=== PATIENT | male | born 1965 | race Caucasian/White ===

== ENCOUNTER 2016-10-11 20:03 | Emergency (ER) | payer SELFPAY ==
[~2016-10-11] VITALS: Ht 170.2 cm; Wt 98.0 kg
[~2016-10-11 20:03] MED LIST: ALBU0.086 INH; ASPI81TA82 PO; ATOR40TA49 PO; IMDU30TA PO; LISI-360 PO
[2016-10-11 20:05] VITALS: BP 135/94; PULSE 72; RESP 17; TEMP 97.8; O2SAT 96
[2016-10-11] MEDS: RESP: ALBUTEROL 2.5 MG/IPRATROPIUM 0.5 MG NEB (SCH) INH (20:43)
[2016-10-11] MEDS ORDERED: SODIUM CHLORIDE 0.9% FLUSH 5 ML FLUSH IVF PRN (20:45)
[2016-10-11 20:52] LABS: AUTOMATED NEUTROPHIL # 4.7 TH/MM3 (1.8-7.7); BASOPHIL # 0.3 TH/MM3 (0-0.2); BASOPHIL % 3.1 % (0.0-2.0); EOSINOPHIL # 0.3 TH/MM3 (0-0.4); EOSINOPHIL % 3.9 % (0.0-4.0); HEMATOCRIT 46.7 % (39.0-51.0); HEMO FLAGS DIFF FINAL; LYMPH % 29.9 % (9.0-44.0); LYMPHOCYTE # 2.5 TH/MM3 (1.0-4.8); MEAN CELL VOLUME 86.1 FL (80.0-100.0); MEAN CORPUSCULAR HEMOGLOBIN 28.4 PG (27.0-34.0); MONO % 6.5 % (0.0-8.0); NEUT % 56.6 % (16.0-70.0); PLATELET COUNT 226 TH/MM3 (150-450); RED BLOOD COUNT 5.43 MIL/MM3 (4.50-5.90); RED CELL DISTRIBUTION WIDTH 12.9 % (11.6-17.2); WHITE BLOOD COUNT 8.3 TH/MM3 (4.0-11.0)
--- NOTE | 2016-10-11 20:52 | PD ---
HPI Chief Complaint: Respiratory Symptoms Time Seen by Provider: 20:33 Travel History International Travel<30 days: No Contact w/Intl Traveler<30days: No Traveled to known affect area: No History of Present Illness HPI The patient is a 51-year-old male that complains of cough, chest congestion and chest tightness for 2 weeks. He does have a history of coronary artery disease and has had a myocardial infarction the past. He states this feeling of chest tightness is not the same as when he had heart problems. He has never smoked. He denies any fever. He denies any wheezing and his cough is occasionally productive of yellow sputum. He has not used his nebulizer machine at home because he states he has not had any wheezing. PFSH Past Medical History Arthritis: No Asthma: Yes Autoimmune Disease: No Blood Disorders: No Anxiety: Yes Depression: Yes Heart Rhythm Problems: No Cancer: No Cardiac Catheterization: Yes (X 2 "BLOCKED ARTERY IN HEART") Cardiovascular Problems: Yes High Cholesterol: Yes Chemotherapy: No Chest Pain: Yes Congestive Heart Failure: No COPD: No Cerebrovascular Accident: No Coronary Artery Disease: Yes Diabetes: No Diminished Hearing: No Endocrine: No Gastrointestinal Disorders: Yes (FATTY LIVER) GERD: No Glaucoma: No Genitourinary: No Headaches: Yes Hepatitis: No Hiatal Hernia: No Hypertension: Yes Immune Disorder: No Kidney Stones: No Medical other: Yes (PARKINSONS) Musculoskeletal: Yes (RIGHT ELBOW REPAIR SURGERIES X7 S/P SENIOR CARE) Neurologic: Yes Parkinson's Disease: Yes Psychiatric: Yes (PTSD) Reproductive: No Respiratory: Yes Migraines: No Myocardial Infarction: No Pneumonia: Yes Radiation Therapy: No Renal Failure: No Seizures: No Sickle Cell Disease: No Sleep Apnea: No Thyroid Disease: No Ulcer: Yes (GASTRIC) Past Surgical History Abdominal Surgery: Yes (UMBILICAL HERNIA REPAIR) AICD: No Appendectomy: No Arteriovenous Shunt: No Cardiac Surgery: No Cholecystectomy: Yes Coronary Artery Bypass Graft: No Ear Surgery: No Endocrine Surgery: No Eye Surgery: Yes (left eye metal removed) Genitourinary Surgery: No Gynecologic Surgery: No Insulin Pump: No Neurologic Surgery: Yes (DOUBLE FUSION OF L4-5-S1 AUG 2007) Oral Surgery: No Pacemaker: No Thoracic Surgery: No Other Surgery: Yes (BILATERAL CARPEL TUNNEL 09/2012;MASS TAKEN OUT OF RIGHT ELBOW) Family History Family Myocardial Infarction: Yes Family Hypercholesterolemia: Yes Social History Alcohol Use: No Tobacco Use: No Substance Use: No (PAST HISTORY, CLEAN SINCE 2010) Allergies-Medications (Allergen,Severity, Reaction): Coded Allergies: Sulfa (Verified Allergy, Severe, SWEKLLING AND ITCHING, 10/11/16) Reported Meds & Prescriptions Reported Meds & Active Scripts Active Reported Ventolin Hfa 18 GM Inh (Albuterol Sulfate) 90 Mcg/Act Aer 2 Puff INH Q4-6H PRN Simvastatin 20 Mg Tab 20 Mg PO DAILY Norvasc (Amlodipine Besylate) 10 Mg Tab 10 Mg PO DAILY Aspirin 81 Mg Tabdr 81 Mg PO DAILY Review of Systems Except as stated in HPI: all other systems reviewed are Neg Physical Exam Narrative GENERAL: The patient is alert, oriented 3 in slight respiratory distress. His vital signs are normal but the oximetry is 96%. SKIN: Warm and dry. HEAD: Atraumatic. Normocephalic. EYES: Pupils equal and round. No scleral icterus. No injection or drainage. ENT: No nasal bleeding or discharge. Mucous membranes pink and moist. NECK: Trachea midline. No JVD. CARDIOVASCULAR: Regular rate and rhythm. No murmur appreciated. RESPIRATORY: No accessory muscle use. Clear to auscultation. Breath sounds equal bilaterally but are diminished bilaterally. GASTROINTESTINAL: Abdomen soft, non-tender, nondistended. Hepatic and splenic margins not palpable. MUSCULOSKELETAL: No obvious deformities. No clubbing. No cyanosis. No edema. NEUROLOGICAL: Awake and alert. No obvious cranial nerve deficits. Motor grossly within normal limits. Normal speech. PSYCHIATRIC: Appropriate mood and affect; insight and judgment normal. Data Data Last Documented VS Vital Signs Date Time Temp Pulse Resp B/P Pulse Ox O2 Delivery O2 Flow Rate FiO2 10/11/16 23:15 Room Air 2 10/11/16 23:15 77 17 129/72 97 10/11/16 20:05 97.8 Orders Electrocardiogram (10/11/16 20:33) Ckmb (Isoenzyme) Profile (10/11/16 20:33) Complete Blood Count With Diff (10/11/16 20:33) Comprehensive Metabolic Panel (10/11/16 20:33) Magnesium (Mg) (10/11/16 20:33) Troponin I (10/11/16 20:33) Ecg Monitoring (10/11/16 20:33) Iv Access Insert/Monitor (10/11/16 20:33) Oximetry (10/11/16 20:33) Oxygen Administration (10/11/16 20:33) Sodium Chloride 0.9% Flush (Ns Flush) (10/11/16 20:45) Chest, Pa & Lat (10/11/16 20:33) Influenzae A/B Antigen (10/11/16 20:33) Albuterol-Ipratropium Neb (Duoneb Neb) (10/11/16 20:45) CKMB (10/11/16 20:45) CKMB% (10/11/16 20:45) B-Type Natriuretic Peptide (10/11/16 22:07) Arterial Blood Gas (Abg) (10/11/16 22:07) Ct Pulmonary Angiogram (10/11/16 22:07) Iohexol 350 Inj (Omnipaque 350 Inj) (10/11/16 23:06) Labs Laboratory Tests Test 10/11/16 10/11/16 20:45 22:15 White Blood Count 8.3 TH/MM3 Red Blood Count 5.43 MIL/MM3 Hemoglobin 15.4 GM/DL Hematocrit 46.7 % Mean Corpuscular Volume 86.1 FL Mean Corpuscular Hemoglobin 28.4 PG Mean Corpuscular Hemoglobin 33.0 % Concent Red Cell Distribution Width 12.9 % Platelet Count 226 TH/MM3 Mean Platelet Volume 8.7 FL Neutrophils (%) (Auto) 56.6 % Lymphocytes (%) (Auto) 29.9 % Monocytes (%) (Auto) 6.5 % Eosinophils (%) (Auto) 3.9 % Basophils (%) (Auto) 3.1 % Neutrophils # (Auto) 4.7 TH/MM3 Lymphocytes # (Auto) 2.5 TH/MM3 Monocytes # (Auto) 0.5 TH/MM3 Eosinophils # (Auto) 0.3 TH/MM3 Basophils # (Auto) 0.3 TH/MM3 CBC Comment DIFF FINAL Differential Comment Sodium Level 144 MEQ/L Potassium Level 3.9 MEQ/L Chloride Level 108 MEQ/L Carbon Dioxide Level 27.0 MEQ/L Anion Gap 9 MEQ/L Blood Urea Nitrogen 15 MG/DL Creatinine 1.60 MG/DL Estimat Glomerular Filtration 45 ML/MIN Rate Random Glucose 105 MG/DL Calcium Level 8.9 MG/DL Magnesium Level 2.2 MG/DL Total Bilirubin 0.2 MG/DL Aspartate Amino Transf 54 U/L (AST/SGOT) Alanine Aminotransferase 48 U/L (ALT/SGPT) Alkaline Phosphatase 81 U/L Total Creatine Kinase 952 U/L Creatine Kinase MB 3.9 NG/ML Creatine Kinase MB % 0.4 % Troponin I LESS THAN 0.02 NG/ML B-Type Natriuretic Peptide 23 PG/ML Total Protein 7.2 GM/DL Albumin 3.7 GM/DL Blood Gas Puncture Site RT RADIAL Blood Gas Patient Temperature 98.6 Blood Gas HCO3 23 mmol/L Blood Gas Base Excess -0.5 mmol/L Blood Gas Oxygen Saturation 95 % Arterial Blood pH 7.44 Arterial Blood Partial 35 mmHG Pressure CO2 Arterial Blood Partial 81 mmHG Pressure O2 Arterial Blood Oxygen Content 19.9 Vol % Arterial Blood 1.4 % Carboxyhemoglobin Arterial Blood Methemoglobin 1.0 % Blood Gas Hemoglobin 14.9 G/DL Blood Gas Inspired Oxygen 21 % MDM Medical Decision Making Medical Screen Exam Complete: Yes Emergency Medical Condition: Yes Medical Record Reviewed: Yes Interpretation(s) The EKG is normal with a normal sinus rhythm rate of 71. The cardiac enzymes are normal. The complete metabolic profile shows a creatinine 1.6 and GFR 45 with GOT of 54 but is otherwise unremarkable. The CBC is normal. The influenza A/B antigen is negative for flu a and flu B antigen. The chest x-ray shows no acute disease. The patient's oximetry is now 94% on room air. The BNP is normal and the CT pulmonary angiogram shows no acute change and no pulmonary embolus. Differential Diagnosis Pneumonia, bronchitis, congestive heart failure, COPD with acute exacerbation, pulmonary embolus, viral syndrome Narrative Course The patient likely has a bronchitis. He will be given Zithromax 500 mg for 5 days. He is told that this is viral that the antibiotics will not have an effect. Diagnosis Primary Impression: Bronchitis Additional Instructions: The antibiotic is taken one tablet daily for 5 days. It stays in your system and works for about 2 weeks. Follow-up next week with your primary care physician. Med/Other Pt SpecificInfo: Prescription(s) given Scripts Azithromycin (Zithromax)500 Mg [id number] Mg PO DAILY 5 Days Ref 0 Prov:David Hogue MD 10/11/16 Disposition: 01 DISCHARGE HOME Condition: Stable David Hogue MD Oct 11, 2016 20:52
[2016-10-11] MEDS ORDERED: VENTAER INH (20:55)
[2016-10-11] MEDS ORDERED: AMLO10 PO (20:55)
[2016-10-11] MEDS ORDERED: ASPI1TAB69 PO (20:55)
[2016-10-11] MEDS ORDERED: SIMV20TA PO (20:55)
[2016-10-11 21:10] LABS: CHLORIDE 108 MEQ/L (98-107); POTASSIUM 3.9 MEQ/L (3.5-5.1); SODIUM (NA) 144 MEQ/L (136-145)
[2016-10-11 21:14] LABS: ANION GAP 9 MEQ/L (5-15); BLOOD UREA NITROGEN 15 MG/DL (7-18); MAGNESIUM 2.2 MG/DL (1.5-2.5)
[2016-10-11 21:17] LABS: ALT (GPT) 48 U/L (12-78); AST (GOT) 54 U/L (15-37); GLOMERULAR FILTRATION RATE 45 ML/MIN (>89)
[2016-10-11 21:18] LABS: TOTAL BILIRUBIN ADULT 0.2 MG/DL (0.2-1.0)
[2016-10-11 21:20] VITALS: BP 148/92; PULSE 81; RESP 20; O2SAT 98
[2016-10-11 21:20] LABS: ALKALINE PHOSPHATASE 81 U/L (45-117); CREATINE KINASE 952 U/L (39-308)
[2016-10-11 21:32] LABS: CKMB 3.9 NG/ML (0.5-3.6)
--- NOTE | 2016-10-11 21:49 | RADHPO ---
EXAM DATE/TIME: 10/11/2016 21:40 [facility] COMPARISON: No previous studies available for comparison. INDICATIONS : Congestion, cough MEDICAL HISTORY : None. SURGICAL HISTORY : None. ENCOUNTER: Initial ACUITY: 2 days PAIN SCORE: 3/10 LOCATION: Bilateral chest FINDINGS: PA and lateral views of the chest demonstrate the lungs to be symmetrically aerated without evidence of mass, infiltrate or effusion. The cardiomediastinal contours are unremarkable. Osseous structure s are intact. CONCLUSION: No acute disease. Raheem Hodge MD on October 11, 2016 at 21:48 Board Certified Radiologist. This report was verified electronically.
[2016-10-11 22:22] VITALS: O2SAT 95
[2016-10-11 22:25] VITALS: BP 133/70; PULSE 79; RESP 18; O2SAT 96
[2016-10-11 22:26] LABS: BLOOD GAS BASE EXCESS -0.5 mmol/L (-2-2); BLOOD GAS CARBOXYHEMOGLOBIN 1.4 % (0-4); BLOOD GAS HCO3 23 mmol/L (22-26); BLOOD GAS O2 HGB SATURATION 95 % (90-100); BLOOD GAS OXYGEN CONTENT 19.9 Vol % (12.0-20.0); BLOOD GAS PCO2 35 mmHG (38-42); BLOOD GAS PO2 81 mmHG (61-120); BLOOD GAS TOTAL HGB 14.9 G/DL (12.0-16.0); TEMP CORR TO 98.6
[2016-10-11 22:27] LABS: CRITICAL VALUE NO; DRAW SITE RT RADIAL; FIO2 21 %; NUMBER OF ARTERIAL PUNCTURES 1; STAT YES; ULNAR PULSE Y
--- NOTE | 2016-10-11 23:05 | RADHPO ---
EXAM DATE/TIME: 10/11/2016 22:38 [facility] COMPARISON: No previous studies available for comparison. INDICATIONS : Chest tightness and cough for two weeks. IV CONTRAST: 74 cc Omnipaque 350 (iohexol) IV RADIATION DOSE: 19.32 CTDIvol (mGy) MEDICAL HISTORY : Hypertension. Parkinsons. Myocardial infarction.Coronary artery disease. SURGICAL HISTORY : Cholecystectomy. ENCOUNTER: Initial ACUITY: 2 weeks PAIN SCALE: 5/10 LOCATION: chest TECHNIQUE: Volumetric scanning of the chest was performed using a pulmonary embolism protocol MIP images were re constructed. Using automated exposure control and adjustment of the mA and/or kV according to patien t size, radiation dose was kept as low as reasonably achievable to obtain optimal diagnostic quality images. FINDINGS: PULMONARY ARTERIES: No filling defects are seen in the pulmonary arteries through the segmental level. LUNGS: There is no consolidation or pneumothorax . No concerning pulmonary nodule is visualized. PLEURAE: There is no pleural thickening or pleural effusion. MEDIASTINUM: There is good visualization of the great vessels of the middle mediastinum. No evidence of mediastin al or hilar adenopathy/mass. MUSCULOSKELETAL: Within normal limits for patient age. MISCELLANEOUS: The visualized upper abdominal organs demonstrate no acute abnormality. CONCLUSION: 1. No evidence of pulmonary embolism. 2. No acute intrathoracic disease. Conor Palomares MD on October 11, 2016 at 23:02 Board Certified Radiologist. This report was verified electronically.
[2016-10-11] MEDS ORDERED: IOHEXOL 350 MG/ML 10 ML VIAL (for RAD DIAG) IV ONE (23:06)
[2016-10-11 23:15] VITALS: BP 129/72; PULSE 77; RESP 17; O2SAT 97
[2016-10-11] MEDS ORDERED: ZITH500T PO (23:25)
[2016-10-11] MEDS ORDERED: AZITHROMYCIN 250 MG TAB PO ONE (23:30)
[2016-10-11 23:41] VITALS: BP 123/61
--- NOTE | 2016-10-12 17:02 | EKG ---
Date Performed: 10/11/2016 Time Performed: 20:17:58 PTAGE: 51 years EKG: Sinus rhythm . Compared to prior tracing no significant change Normal ECG PREVIOUS TRACING : 12/26/2013 17.41 DOCTOR: Alessandra Mullen Interpretating Date/Time 10/12/2016 17:00:04
== END 2016-10-11 23:51 | disposition home or self-care (01) ==
LOC: PHED 20:03
DX: J40 Bronchitis, not specified as acute or chronic (principal); R07.89 Other chest pain; I25.10 Atherosclerotic heart disease of native coronary artery without angina pectoris; I10 Essential (primary) hypertension; I25.2 Old myocardial infarction; E78.00 Pure hypercholesterolemia, unspecified; Z87.09 Personal history of other diseases of the respiratory system; Z86.59 Personal history of other mental and behavioral disorders; Z87.19 Personal history of other diseases of the digestive system; Z86.69 Personal history of other diseases of the nervous system and sense organs; Z87.01 Personal history of pneumonia (recurrent)
CPT/HCPCS: 36600; 71020; 71275; 80053; 82550; 82552; 82805; 83735; 83880; 84484; 85025; 87804; 93005; 94640; 94664; 99284; Q9967

== ENCOUNTER 2017-02-04 19:41 | Observation (INO) | payer MEDICARE ==
[~2017-02-04] VITALS: Ht 170.2 cm; Wt 110.0 kg
[~2017-02-04 19:41] MED LIST changes: -ALBU0.086 INH; +AMLO10 PO; +ASPI1TAB69 PO; -ASPI81TA82 PO; -ATOR40TA49 PO; -IMDU30TA PO; -LISI-360 PO; +SIMV20TA PO; +VENTAER INH; +ZITH500T PO
[2017-02-04 19:46] VITALS: BP 162/96; PULSE 75; RESP 16; TEMP 98.6; O2SAT 99
--- NOTE | 2017-02-04 21:18 | RADRPT ---
EXAM DATE/TIME: 02/04/2017 21:16 [facility] COMPARISON: CHEST SINGLE AP, December 26, 2013, 19:44. INDICATIONS : Chest pain. MEDICAL HISTORY : Cardiac blockages, asthma. SURGICAL HISTORY : Cardiac caths. ENCOUNTER: Initial ACUITY: 2 days PAIN SCORE: 7/10 LOCATION: middle chest. FINDINGS: A single view of the chest demonstrates the lungs to be symmetrically aerated without evidence of mas s, infiltrate or effusion. The cardiomediastinal contours are unremarkable. Osseous structures are intact. CONCLUSION: No acute disease. Barron Manning MD FACR on February 04, 2017 at 21:16 Board Certified Radiologist. This report was verified electronically.
[2017-02-04 21:19] LABS: AUTOMATED NEUTROPHIL # 3.9 TH/MM3 (1.8-7.7); BASOPHIL # 0.1 TH/MM3 (0-0.2); BASOPHIL % 1.1 % (0.0-2.0); EOSINOPHIL # 0.2 TH/MM3 (0-0.4); EOSINOPHIL % 2.2 % (0.0-4.0); HEMATOCRIT 47.5 % (39.0-51.0); HEMO FLAGS DIFF FINAL; LYMPH % 32.7 % (9.0-44.0); LYMPHOCYTE # 2.3 TH/MM3 (1.0-4.8); MEAN CELL VOLUME 84.1 FL (80.0-100.0); MEAN CORPUSCULAR HEMOGLOBIN 29.3 PG (27.0-34.0); MEAN CORPUSCULAR HGB CONC 34.8 % (32.0-36.0); MONO % 9.1 % (0.0-8.0); NEUT % 54.9 % (16.0-70.0); PLATELET COUNT 209 TH/MM3 (150-450); RED BLOOD COUNT 5.65 MIL/MM3 (4.50-5.90); RED CELL DISTRIBUTION WIDTH 13.6 % (11.6-17.2); WHITE BLOOD COUNT 7.1 TH/MM3 (4.0-11.0)
[2017-02-04 21:26] LABS: APTT (PATIENT) 26.1 SEC (24.3-30.1)
[2017-02-04 21:36] LABS: ANION GAP 9 MEQ/L (5-15); BICARBONATE 27.8 MEQ/L (21.0-32.0); BLOOD UREA NITROGEN 16 MG/DL (7-18); CHLORIDE 103 MEQ/L (98-107); GLOMERULAR FILTRATION RATE 48 ML/MIN (>89); POTASSIUM 3.7 MEQ/L (3.5-5.1); SODIUM (NA) 140 MEQ/L (136-145)
[2017-02-04 21:44] LABS: CREATINE KINASE 223 U/L (39-308)
[2017-02-05] MEDS ORDERED: ASPIRIN 81 MG CHEW TAB CHEW ONE (00:15)
--- NOTE | 2017-02-05 00:17 | PD ---
HPI Chief Complaint: Chest Pain Time Seen by Provider: 00:00 Travel History International Travel<30 days: No Contact w/Intl Traveler<30days: No Traveled to known affect area: No History of Present Illness HPI Patient 51-year-old male with a history of PA presents emergency Department with chest pain and tightness radiating to his left arm as well as some shortness of breath with minimal exertion for the past 4 days. Patient is followed by the [facility] heart group. He states last stress test was 4 years ago. He states he has known blockages multiple arteries to 75% which did not require intervention. States she's not had a catheter since before his last stress test 4 years ago. Endorses a history of high blood pressure and high cholesterol. States he also has a history of gastroparesis and reflux. He denies any nausea or vomiting currently. Denies any fever or cough. States currently is discomfort is only mild and feels like a tightness. PFSH Past Medical History Hx Anticoagulant Therapy: Yes (asprin) Arthritis: No Asthma: Yes Autoimmune Disease: No Blood Disorders: No Anxiety: Yes Depression: Yes Heart Rhythm Problems: No Cancer: No Cardiac Catheterization: Yes (X 2 "BLOCKED ARTERY IN HEART") Cardiovascular Problems: Yes (mi, htn) High Cholesterol: Yes Chemotherapy: No Chest Pain: Yes Congestive Heart Failure: No COPD: No Cerebrovascular Accident: No Coronary Artery Disease: Yes Diabetes: No Diminished Hearing: No Endocrine: No Gastrointestinal Disorders: Yes (FATTY LIVER) GERD: No Glaucoma: No Genitourinary: No Headaches: Yes Hepatitis: No Hiatal Hernia: No Hypertension: Yes Immune Disorder: No Kidney Stones: No Musculoskeletal: Yes (RIGHT ELBOW REPAIR SURGERIES X7 S/P CARE HOME) Neurologic: Yes Parkinson's Disease: Yes Psychiatric: Yes (PTSD) Reproductive: No Respiratory: Yes (asthma) Migraines: No Myocardial Infarction: No Pneumonia: Yes Radiation Therapy: No Renal Failure: No Seizures: No Sickle Cell Disease: No Sleep Apnea: No Thyroid Disease: No Ulcer: Yes (GASTRIC) Past Surgical History Abdominal Surgery: Yes (UMBILICAL HERNIA REPAIR) AICD: No Appendectomy: No Arteriovenous Shunt: No Cardiac Surgery: No Cholecystectomy: Yes Coronary Artery Bypass Graft: No Ear Surgery: No Endocrine Surgery: No Eye Surgery: Yes (left eye metal removed) Genitourinary Surgery: No Gynecologic Surgery: No Insulin Pump: No Neurologic Surgery: Yes (DOUBLE FUSION OF L4-5-S1 AUG 2007) Oral Surgery: No Pacemaker: No Thoracic Surgery: No Other Surgery: Yes (BILATERAL CARPEL TUNNEL 09/2012;MASS TAKEN OUT OF RIGHT ELBOW) Family History Family Hypercholesterolemia: Yes Social History Alcohol Use: No Tobacco Use: No Substance Use: No (PAST HISTORY, CLEAN SINCE 2010) Allergies-Medications (Allergen,Severity, Reaction): Coded Allergies: Sulfa (Verified Allergy, Severe, SWEKLLING AND ITCHING, 10/11/16) Reported Meds & Prescriptions Reported Meds & Active Scripts Active Zithromax (Azithromycin) 500 Mg Tab 500 Mg PO DAILY 5 Days Reported Ventolin Hfa 18 GM Inh (Albuterol Sulfate) 90 Mcg/Act Aer 2 Puff INH Q4-6H PRN Simvastatin 20 Mg Tab 20 Mg PO DAILY Norvasc (Amlodipine Besylate) 10 Mg Tab 10 Mg PO DAILY Aspirin 81 Mg Tabdr 81 Mg PO DAILY Review of Systems Except as stated in HPI: all other systems reviewed are Neg Physical Exam Narrative GENERAL: Well-developed well-nourished no apparent distress SKIN: Focused skin assessment warm/dry. HEAD: Atraumatic. Normocephalic. EYES: Pupils equal and round. No scleral icterus. No injection or drainage. ENT: No nasal bleeding or discharge. Mucous membranes pink and moist. NECK: Trachea midline. No JVD. CARDIOVASCULAR: Regular rate and rhythm. No murmur appreciated. 2+ bilateral equal pulses in all 4 extremities. RESPIRATORY: No accessory muscle use. Clear to auscultation. Breath sounds equal bilaterally. GASTROINTESTINAL: Abdomen soft, non-tender, nondistended. Hepatic and splenic margins not palpable. MUSCULOSKELETAL: No obvious deformities. No clubbing. No cyanosis. No edema. NEUROLOGICAL: Awake and alert. No obvious cranial nerve deficits. Motor grossly within normal limits. Normal speech. PSYCHIATRIC: Appropriate mood and affect; insight and judgment normal. Data Data Last Documented VS Vital Signs Date Time Temp Pulse Resp B/P Pulse Ox O2 Delivery O2 Flow Rate FiO2 02/04/17 19:46 98.6 75 16 162/96 99 Room Air Orders Electrocardiogram (02/04/17 ) Complete Blood Count With Diff (02/04/17 20:35) Basic Metabolic Panel (Bmp) (02/04/17 20:35) Ckmb (Isoenzyme) Profile (02/04/17 20:35) Troponin I (02/04/17 20:35) Chest, Single Ap (02/04/17 20:35) Act Partial Throm Time (Ptt) (02/04/17 20:35) Act Partial Throm Time (Ptt) (02/04/17 21:26) CKMB (02/04/17 20:52) CKMB% (02/04/17 20:52) Aspirin Chew (Aspirin Chew) (02/05/17 00:15) Nitroglycerin 2% Oint (Nitroglycerin 2% (02/05/17 00:30) Nitroglycerin Sl (Nitrostat Sl) (02/05/17 00:30) Activity Bed Rest With Brp (02/05/17 00:24) Vital Signs (Adult) Q4H (02/05/17 00:24) Cardiac Rhythm .As Directed (02/05/17 00:24) Notify Dr: Other .PRN (02/05/17 00:24) Notify DrJose Parameters (02/05/17 00:24) Resp Oxygen Nasal Cannula (02/05/17 ) Ckmb (Isoenzyme) Profile (02/05/17 00:24) Ckmb (Isoenzyme) Profile (02/05/17 03:24) Troponin I (02/05/17 00:24) Troponin I (02/05/17 03:24) Electrocardiogram (02/05/17 00:24) Electrocardiogram (02/05/17 03:24) ^ Obtain (02/05/17 00:24) Sodium Chloride 0.9% Flush (Ns Flush) (02/05/17 00:30) Sodium Chloride 0.9% Flush (Ns Flush) (02/05/17 09:00) Archivist / Telemetry [id number] (02/05/17 00:24) Admit Order (Ed Use Only) (02/05/17 ) Labs Laboratory Tests Test 02/04/17 20:52 White Blood Count 7.1 TH/MM3 Red Blood Count 5.65 MIL/MM3 Hemoglobin 16.6 GM/DL Hematocrit 47.5 % Mean Corpuscular Volume 84.1 FL Mean Corpuscular Hemoglobin 29.3 PG Mean Corpuscular Hemoglobin 34.8 % Concent Red Cell Distribution Width 13.6 % Platelet Count 209 TH/MM3 Mean Platelet Volume 9.0 FL Neutrophils (%) (Auto) 54.9 % Lymphocytes (%) (Auto) 32.7 % Monocytes (%) (Auto) 9.1 % Eosinophils (%) (Auto) 2.2 % Basophils (%) (Auto) 1.1 % Neutrophils # (Auto) 3.9 TH/MM3 Lymphocytes # (Auto) 2.3 TH/MM3 Monocytes # (Auto) 0.6 TH/MM3 Eosinophils # (Auto) 0.2 TH/MM3 Basophils # (Auto) 0.1 TH/MM3 CBC Comment DIFF FINAL Differential Comment Activated Partial 26.1 SEC Thromboplast Time Sodium Level 140 MEQ/L Potassium Level 3.7 MEQ/L Chloride Level 103 MEQ/L Carbon Dioxide Level 27.8 MEQ/L Anion Gap 9 MEQ/L Blood Urea Nitrogen 16 MG/DL Creatinine 1.52 MG/DL Estimat Glomerular Filtration 48 ML/MIN Rate Random Glucose 91 MG/DL Calcium Level 9.2 MG/DL Total Creatine Kinase 223 U/L Creatine Kinase MB 2.0 NG/ML Troponin I LESS THAN 0.02 NG/ML MDM Medical Decision Making Medical Screen Exam Complete: Yes Emergency Medical Condition: Yes Interpretation(s) EKG shows normal sinus rhythm with normal axis normal R-wave progression. No concerning ST-T changes. Intervals within normal limits. This normal EKG. Differential Diagnosis ACS, PA, pericarditis, chest wall pain, CAD. Narrative Course Is a 51-year-old male with a known history of CAD presents emergency Department with chest tightness. Patient initial workup included a troponin and basic labs within normal limits. Discussed the patient he needs strong consideration for a stress test and would like to be admitted for chest pain center. Orders have been been placed. Patient is stable at this time. He can follow up his gastroparesis an outpatient. He is not having an active flareup gastroparesis. Diagnosis Primary Impression: Chest pain Qualified Code: R07.9 - Chest pain, unspecified type Admitting Information Admitting Physician Requests: Observation Referrals: Ana Maria June MD Condition: Stable Karan Ontiveros MD February 05, 2017 00:17
[2017-02-05] MEDS ORDERED: NITROGLYCERIN 0.4 MG SL 25 TABS/BTL SL ONE (00:30)
[2017-02-05] MEDS ORDERED: SODIUM CHLORIDE 0.9% FLUSH 10 ML FLUSH IV FLUSH PRN (00:30)
[2017-02-05] MEDS ORDERED: NITROGLYCERIN 2% OINT 1 GM PACKET TOPICAL ONE (00:30)
[2017-02-05] MEDS ORDERED: OMEP20TA PO (00:52)
[2017-02-05] MEDS ORDERED: HYDR25TA5 PO (00:52)
[2017-02-05 01:03] VITALS: BP 149/79; PULSE 67; RESP 16; O2SAT 97
[2017-02-05 02:05] VITALS: BP 133/84; PULSE 71; RESP 19; TEMP 98; O2SAT 95
[2017-02-05 02:23] LABS: CREATINE KINASE 192 U/L (39-308)
[2017-02-05 02:36] LABS: CKMB 1.5 NG/ML (0.5-3.6)
[2017-02-05 03:59] LABS: CREATINE KINASE 171 U/L (39-308)
[2017-02-05 07:17] VITALS: BP 162/74; PULSE 63; RESP 18; TEMP 97.2; O2SAT 97
[2017-02-05] MEDS ORDERED: NITROGLYCERIN 0.4 MG SL 25 TABS/BTL SL PRN (07:30)
[2017-02-05] MEDS ORDERED: ACETAMINOPHEN 500 MG CPLT PO PRN (07:30)
[2017-02-05] MEDS ORDERED: ONDANSETRON HCL 4 MG/2 ML VIAL IV PRN (07:30)
[2017-02-05 08:15] VITALS: PULSE 52
--- NOTE | 2017-02-05 08:22 | HHI.HP ---
HPI Primary Care Physician Non-Staff Chief Complaint Chest pain History of Present Illness 51-year-old male presents to emergency room for further evaluation of chest tightness. Onset Wednesday upon awakening. Location substernal. Characterized as chest pressure and tightness described as "someone sitting on my chest." Associated symptoms included diaphoresis and shortness of breath. No nausea, vomiting. Chest tightness over past few days occurred intermittently lasting no more than 3 minutes. No known precipitating factors. Endorses chest tightness occurs with exertion, when laying down, and upon awakening. No particular movement, position, or taking a deep breath makes pressure better or worse. Endorses shortness of breath occurs when talking 1 week. Review of Systems General: No fatigue,weakness, fever, chills, recent illness, recent travel, or change in appetite HEENT: No WONG, no vision changes, no nasal congestion or drainage, no dysphasia CV: As stated above. Denies any current chest pain or pressure. No palpitations, intermittent leg pain, or dizziness. RESP: History of asthma, use of inhalers when necessary. No recent URI, cough, or wheeze. Endorses increased shortness of breath upon awakening and talking. Chest tightness occur simultaneously during the case. GI: No nausea, vomiting, bowel changes, diarrhea, constipation, pain, distention , no blood in stool. : No dysuria, urgency, or frequency. EXT: No lower leg edema, no paraesthesias MS: No discomfort or change in ROM NEURO: No change in memory, dizziness, difficulty with balance, LOC, motor/ sensory deficits PSYCH: Endorses situational stress. No current anxiety or depression. No suicidal ideation. SKIN: No rashes, no concerning lesions Past Family Social History Allergies: Coded Allergies: Sulfa (Verified Allergy, Severe, SWEKLLING AND ITCHING, 02/05/17) Past Medical History Asthma, anxiety, depression, hypertension, GERD, gastroparesis, Parkinson's Past Surgical History Umbilical hernia repair, right elbow surgery repair, back fusion of L4-5, bilateral carpal tunnel surgeries Reported Medications Active Reported Hydrochlorothiazide 25 Mg Tab 25 Mg PO DAILY Omeprazole 20 Mg Tab 20 Mg PO DAILY Ventolin Hfa 18 GM Inh (Albuterol Sulfate) 90 Mcg/Act Aer 2 Puff INH Q4-6H PRN Aspirin 81 Mg Tabdr 81 Mg PO DAILY Active Ordered Medications Current Medications Medications (Trade) Dose Ordered Sig/Shey Route Start Time Stop Time Status Last Admin (Tylenol) 500 mg Q4H PRN PO 02/05/17 07:30 (Zofran Inj) 4 mg Q6H PRN IV 02/05/17 07:30 (Nitrostat Sl) 0.4 mg Q5M PRN SL 02/05/17 07:30 (Aspirin) 325 mg DAILY PO 02/05/17 09:00 Family History Noncontributory for early onset cardiovascular disease. Social History No known diabetes. Known hyperlipidemia and hypertension. Endorses he has been out of simvastatin for 3 months. Lifelong nonsmoker. Denies any current alcohol or illegal drug use. Active. Past cardiac testing 12/26/13-cardiac catheterization (performed by Dr. Eamon Byrne)LAD 20% proximal irregularity and about 10% mid and distal irregularity. One large major diagonal branch 10% irregularity. Circumflex artery prior to nitroglycerin 40% stenosis and after nitroglycerin 10/20% stenosis. RCA 5% irregularities throughout. Conclusion 1. Elevated left ventricular end systolic pressure. 2. normal left ventricular systolic function. 3. mild coronary artery disease. There is a suspicion that his angina is vasospastic take in origin. 12/23/13Lexi scan small reversible defect of inferior wall towards the apex suggesting small amount ischemia, EF 60% 12/29/12Lexi scan no reversibility to suggest ischemia, EF 62% 05/04/08-cardiac catheterization (performed by Dr. Mullen)-LAD and first diagonal no significant disease. Circumflex and second obtuse marginal no significant disease. RCA and mid posterior descending artery and large posterior lateral branch no significant disease. Conclusion 1. Mild diffuse disease of about 25%. 2. No significant disease throughout. 3. Normal LV function. There is discrepancy ER documentation. ER documentation reports patient stated he has known blockages multiple arteries 75% with no intervention required. Upon further discussion with patient and evaluation of cardiac catheterization reports he has mild coronary artery disease. Physical Exam Vital Signs Vital Signs Date Time Temp Pulse Resp B/P Pulse Ox O2 Delivery O2 Flow Rate FiO2 02/05/17 07:17 97.2 63 18 162/74 97 02/05/17 02:05 98.0 71 19 133/84 95 02/05/17 01:03 67 16 149/79 97 Room Air 02/05/17 00:42 21 02/04/17 19:46 98.6 75 16 162/96 99 Room Air Physical Exam GENERAL: Alert WN, WD, NAD, pleasant, male HEAD: NC, AT EYES: Sclera clear, conjunctiva without injection, pupils equal and round ENT: Mucous membranes pink and moist NECK: Supple, no masses, trachea midline CV: RRR, without murmur, rub, gallop, no JVD, S1-S2 no S3-S4. RESP: Clear lungs throughout bilateral, no crackles, wheeze, rhonchi, symmetrical chest rise, nonlabored, able to speak in full sentences ABD: Soft, NT, ND, no masses, obese, positive bowel tones EXT: Pulses +24, no dependent edema MS: Normal tone 4 extremities, nontender, no obvious deformities, full range of motion NEURO: CN II through CN XII grossly intact, motor strength 5/5, gait WNL PSYCH: A+O 3, pleasant affect, appropriate speech, appropriate mood and affect , insight and judgment SKIN: Normal turgor, normal texture, no lesions, no rashes, multiple tattoos Laboratory Laboratory Tests Test 02/04/17 02/05/17 02/05/17 20:52 01:51 03:25 White Blood Count 7.1 Red Blood Count 5.65 Hemoglobin 16.6 Hematocrit 47.5 Mean Corpuscular Volume 84.1 Mean Corpuscular Hemoglobin 29.3 Mean Corpuscular Hemoglobin 34.8 Concent Red Cell Distribution Width 13.6 Platelet Count 209 Mean Platelet Volume 9.0 Neutrophils (%) (Auto) 54.9 Lymphocytes (%) (Auto) 32.7 Monocytes (%) (Auto) 9.1 Eosinophils (%) (Auto) 2.2 Basophils (%) (Auto) 1.1 Neutrophils # (Auto) 3.9 Lymphocytes # (Auto) 2.3 Monocytes # (Auto) 0.6 Eosinophils # (Auto) 0.2 Basophils # (Auto) 0.1 CBC Comment DIFF FINAL Differential Comment Activated Partial 26.1 Thromboplast Time Sodium Level 140 Potassium Level 3.7 Chloride Level 103 Carbon Dioxide Level 27.8 Anion Gap 9 Blood Urea Nitrogen 16 Creatinine 1.52 Estimat Glomerular Filtration 48 Rate Random Glucose 91 Calcium Level 9.2 Total Creatine Kinase 223 192 171 Creatine Kinase MB 2.0 1.5 Troponin I LESS THAN 0.02 LESS THAN 0.02 LESS THAN 0.02 Result Diagram: 02/04/17205102/04/172051 Imaging Last Impressions Chest X-Ray 02/04/172034 Signed Impressions: Service Date/Time: , February 04, 2017 21:16 - CONCLUSION: No acute disease. Barron Manning MD FACR Course EKGs 3 EKGs show normal sinus rhythm, normal axis, T-wave inverted inferiorly Assessment and Plan Assessment and Plan #1 Chest painadmitted to chest pain center. Ruled out with 3 sets of EKGs, cardiac enzymes, monitor overnight. Seen and evaluated by Dr. Fani Arvizu. Dr. Arvizu spoke with patient in length chest discomfort atypical most likely related to asthma and/or his gastroparesis is not cardiac in nature. Due to multiple risk factors will order exercise stress test. Patient agreeable to plan of care. Stress test unremarkable will be discharged later this afternoon and follow-up with PCP. #2 Hypertensioncontinue hydrochlorothiazide #3 Hyperlipidemiaencouraged patient to speak with PCP regarding known coronary artery disease and benefits of statin therapy. #4 Gastroparesisfollow with PCP #5 GERD- continue omeprazole #6 Asthmaevery 2 hours when necessary albuterol treatments, continue albuterol when necessary after discharge, encouraged [id number] Claritin or Zyrtec and Flonase nasal spray for allergies, follow with PCP [facility] February 05, 2017 08:22
[2017-02-05] MEDS ORDERED: RESP: ALBUTEROL 2.5 MG/3 ML NEB (PRN) NEB (08:30)
[2017-02-05] MEDS ORDERED: PANTOPRAZOLE SOD 20 MG DELAYED RELEASE TAB PO SCH (09:00)
[2017-02-05] MEDS ORDERED: ASPIRIN 325 MG TAB PO SCH (09:00)
[2017-02-05] MEDS ORDERED: HYDROCHLOROTHIAZIDE 25 MG TAB PO SCH (09:00)
[2017-02-05] MEDS ORDERED: SODIUM CHLORIDE 0.9% FLUSH 10 ML FLUSH IV FLUSH SCH (09:00)
--- NOTE | 2017-02-05 10:58 | HHI.DCPOC ---
Discharge Care Plan Diagnosis: (1) Atypical chest pain Goals to Promote Your Health * To prevent worsening of your condition and complications * To maintain your health at the optimal level Directions to Meet Your Goals Take your medications as prescribed Follow your dietary instruction Follow activity as directed Keep your appointments as scheduled Take your immunizations and boosters as scheduled If your symptoms worsen call your PCP, if no PCP go to Urgent Care Center or Emergency Room Smoking is Dangerous to Your Health. Avoid second hand smoke Call the 24-hour hour crisis hotline for domestic abuse at [facility] February 05, 2017 10:58
--- NOTE | 2017-02-05 19:36 | TR ---
Date Performed: 02/05/2017 Time Performed: 10:03:29 DOCTOR: Fani Arvizu DRUG LIST: CLINICAL HISTORY: CHEST PAIN REASON FOR TEST: REASON FOR ENDING: OBSERVATION: CONCLUSION: Eladio protocol completed. Stopped sec to exceeding target heart rate and leg fatigue . Maximum XF=242 Target HR Achieved=87.0% Maximum PN=710/80 Total Exercise Time=10:01. No reprod ches t discomfort. Good exercise tolerance. No st t segment changes to sugg ichemia. Normal bp response. R ecovery quick and unremarkable. COMMENTS:
--- NOTE | 2017-02-05 19:39 | EKG ---
Date Performed: 02/05/2017 Time Performed: 01:52:27 PTAGE: 51 years EKG: Sinus rhythm NORMAL ECG Since PREVIOUS TRACING , no significant change noted PREVIOUS TRACIN02/04/2017 20.28 DOCTOR: Fani Arvizu Interpretating Date/Time 02/05/2017 19:38:00
--- NOTE | 2017-02-05 19:39 | EKG ---
Date Performed: 02/05/2017 Time Performed: 03:23:15 PTAGE: 51 years EKG: Sinus rhythm WITH SINUS ARRHYTHMIA NORMAL ECG Since PREVIOUS TRACING , no significant change noted PREVIOUS TRACIN02/05/2017 01.52 DOCTOR: Fani Arvizu Interpretating Date/Time 02/05/2017 19:37:46
--- NOTE | 2017-02-05 19:40 | EKG ---
Date Performed: 02/04/2017 Time Performed: 20:28:38 PTAGE: 51 years EKG: Sinus rhythm NORMAL ECG Since PREVIOUS TRACING , no significant change noted PREVIOUS TRACIN10/11/2016 20.17 DOCTOR: Fani Arvizu Interpretating Date/Time 02/05/2017 19:39:27
== END 2017-02-05 11:36 | disposition home or self-care (01) ==
LOC: NEPE 19:41 → NEDA 02-05 00:27 → NEPGCP 02-05 01:56
PROVIDERS: ADMIT Internal Medicine Cardiovascular Disease; ATTEND Internal Medicine Cardiovascular Disease
DX: R07.9 Chest pain, unspecified (principal); I10 Essential (primary) hypertension; I25.10 Atherosclerotic heart disease of native coronary artery without angina pectoris; I25.2 Old myocardial infarction; E78.5 Hyperlipidemia, unspecified; J45.909 Unspecified asthma, uncomplicated; K21.9 Gastro-esophageal reflux disease without esophagitis; K31.84 Gastroparesis; E78.00 Pure hypercholesterolemia, unspecified
CPT/HCPCS: 71010; 80048; 82550; 82552; 84484; 85025; 85730; 93005; 93017; 99285; G0378

== ENCOUNTER 2018-05-16 16:52 | Observation (INO) ==
[2018-05-16] MEDS ORDERED: HYDROmorphone PF Inj 2 MG/ML Vial IV.PUSH ONE ×2 (17:43→22:41)
[2018-05-16] MEDS ORDERED: Sod Chloride 0.9% Inj 1,000 ML IV.SIG ONE (17:43)
--- NOTE | 2018-05-16 17:49 | ED ---
HPI General Chief Complaint: Abdominal Pain Stated Complaint: ABD/Back pain Time Seen by Provider: 05/16/18 19:09 History of Present Illness HPI narrative: This patient complains of abdominal pain. Duration 16 hours. Severity is moderate to severe in nature. Worse when he touches his abdomen. No alleviating factors. He feels very nauseous. No diarrhea or fever. Location of pain is right upper quadrant. He denies history of liver or pancreas or gallbladder disease. No alcohol abuse. Related Data Home Medications Medication Instructions Recorded Confirmed aspirin 81 mg PO DAILY 05/16/18 05/16/18 losartan 25 mg PO DAILY 05/16/18 05/16/18 pantoprazole 20 mg PO DAILY 05/16/18 05/16/18 simvastatin 20 mg PO QPM 05/16/18 05/16/18 Allergies Allergy/AdvReac Type Severity Reaction Status Date / Time Sulfa (Sulfonamide Allergy Severe SWELLING Verified 05/16/18 17:08 Antibiotics) AND ITCHING Review of Systems ROS: all other systems reviewed are negative [facility] Medical History Medical History History of Parkinson's disease (Acute) History of gastroesophageal reflux (GERD) (Acute) History of heart attack (Acute) History of high cholesterol (Acute) History of hypertension (Acute) History of umbilical hernia (Acute) Surgical History Surgical History History of arthroscopy of both knees (Acute) History of arthroscopy of both shoulders (Acute) History of back surgery (Acute) History of cardiac cath (Acute) History of carpal tunnel release of both wrists (Acute) Social History Social History Substance History: No History of Abuse Second Hand Smoke Exposure: No Smoking Status: Never smoker How Often Do You Have a Drink Containing Alcohol: 2 to 4 times a month Recent Travel in [facility] within the Last 8 Weeks: No Recent Out of Country Travel within the Last 8 Weeks: No Immunization History Tetanus Immunization: <5 Years Tetanus Immunization Year if Known: 2014 Hx Influenza Vaccine This Season: No Exam Narrative Exam Narrative: GENERAL: Well-nourished, well-developed patient with abdominal pain . SKIN: Focused skin assessment reveals no rash and nodules. Skin is Warm and dry. HEAD: Atraumatic. Normocephalic. EYES: Pupils equal and round. No scleral icterus. No injection or drainage. ENT: No nasal bleeding or discharge. Mucous membranes pink and moist. NECK: Trachea midline. No JVD. CARDIOVASCULAR: Regular rate and rhythm. No murmur appreciated. RESPIRATORY: No accessory muscle use. Clear to auscultation. Breath sounds equal bilaterally. GASTROINTESTINAL: Abdomen soft, right upper quadrant is tender without rebound or guarding, nondistended. Hepatic and splenic margins not palpable. MUSCULOSKELETAL: No obvious deformities. No clubbing. No cyanosis. No edema. NEUROLOGICAL: Awake and alert. No obvious cranial nerve deficits. Motor grossly within normal limits. Normal speech. PSYCHIATRIC: Appropriate mood and affect; insight and judgment normal. Course Initial Documented Vital Signs Temperature 98.7 F 05/16/18 17:05 Pulse Rate 92 H 05/16/18 17:05 Respiratory Rate 18 05/16/18 17:05 Blood Pressure 136/78 05/16/18 17:05 Pulse Oximetry 97 05/16/18 17:05 Last Documented Vital Signs Temperature 98.7 F 05/16/18 17:05 Pulse Rate 88 05/16/18 19:17 Respiratory Rate 22 05/16/18 19:17 Blood Pressure 149/78 H 05/16/18 19:17 Pulse Oximetry 99 05/16/18 19:17 Sign Out Sign Out Data: Patient Sign Out occurred on 05/16/18 at 19:09. Patient's care was discussed, and care was transferred from Ryan Almanza MD to Julia Rico. Sign Out Comment: Vitals and labs are normal. CT scan is pending. Case checked out to night shift supervisor physician to assist with disposition after workup complete. Last updated by Ryan Almanza MD at 05/16/18 18:51 Post-Handoff Eval: Patient received at signout by Dr. Dillon. CT the abdomen pelvis has resulted which shows hepatic steatosis as well as distended gallbladder. The gallbladder wall appears thickened, cholecystitis can be considered. Patient was evaluated, patient is writhing in pain on the stretcher. Patient has significant right upper quadrant abdominal pain with guarding on exam. I did order a right upper quadrant ultrasound and additional morphine for pain medication. I am concerned of acute cholecystitis including his CT studies as well as his clinical symptoms, a call was made to general surgery. Patient last ate a meal around 4pm today. Case reviewed with Dr. Robbins who accepts pt to his service, will start patient on zosyn. Patient is agreeable to admission Medical Decision Making MDM Narrative Medical decision making narrative: IV placed and labs sent. I gave him pain and nausea medicine for symptom relief. I have ordered CT of abdomen and pelvis. My chief concern is acute cholecystitis. Medical Screen Exam Complete: Yes Emergency Medical Condition: Yes Differential Diagnosis Differential Diagnosis: Pancreatitis , cholecystitis, hepatitis Medical Records Medical records reviewed: Yes I reviewed the patient's medical records. Lab Data Lab results reviewed: Yes I reviewed the patient's lab results. Result diagrams: 05/16/18 18:00 05/16/18 18:00 Lab Results 05/16/18 05/16/18 05/16/18 Range/Units 18:00 18:00 18:00 CBC w Diff Slide review pending WBC 10.0 (4.0-11.0) th/mm3 RBC 5.35 (4.50-5.90) mil/mm3 Hgb 16.0 (13.0-17.0) gm/dL Hct 46.9 (39.0-51.0) % MCV 87.6 (80.0-100.0) fL MCH 30.0 (27.0-34.0) pg MCHC 34.2 (32.0-36.0) % RDW 12.8 (11.6-17.2) % Plt Count 194 (150-450) th/mm3 MPV 9.6 (7.0-11.0) fL Neut % (Auto) 70.0 (16.0-70.0) % Lymph % (Auto) 18.9 (9.0-44.0) % Cochran % (Auto) 9.5 H (0.0-8.0) % Eos % (Auto) 1.0 (0.0-4.0) % Baso % (Auto) 0.6 (0.0-2.0) % Neut # (Auto) 7.0 (1.8-7.7) th/mm3 Lymph # (Auto) 1.9 (1.0-4.8) th/mm3 Cochran # (Auto) 0.9 (0.0-0.9) th/mm3 Eos # (Auto) 0.1 (0.0-0.4) th/mm3 Baso # (Auto) 0.1 (0.0-0.2) th/mm3 WBC Differential . Diff Scan Auto diff confirmed Differential Comment . PT 10.0 (9.8-11.6) sec INR 1.0 Ratio APTT 26.8 (24.3-30.1) sec Sodium 136 (136-145) meq/L Potassium 3.7 (3.5-5.1) meq/L Chloride 104 (98-107) meq/L Carbon Dioxide 24.3 (21.0-32.0) meq/L Anion Gap 8 (5-15) meq/L BUN 16 (7-18) mg/dL Creatinine 1.10 (0.60-1.30) mg/dL Estimated GFR 69 L (>89) mL/min Random Glucose 114 H (74-106) mg/dL Calcium 9.1 (8.5-10.1) mg/dL Total Bilirubin 0.6 (0.2-1.0) mg/dL AST 22 (15-37) U/L ALT 40 (12-78) U/L Alkaline Phosphatase 77 (45-117) U/L Total Protein 7.5 (6.4-8.2) g/dL Albumin 3.9 (3.4-5.0) g/dL Lipase 112 (73-393) U/L Imaging Data Radiologist's impression: Abdomen/Pelvis CT 05/16/18 17:43 CONCLUSION: 1. Hepatic steatosis. 2. Distended gallbladder. The gallbladder appears thickened. Cholecystitis can be considered. Gallbladder Ultrasound 05/16/18 19:09 CONCLUSION: 1. Distended gallbladder with echogenic material within the gallbladder. Gallbladder wall appears mildly thickened with mild pericholecystic fluid. Shadowing gallstones are not seen. The echogenic material could be tumefactive sludge. Acalculous cholecystitis could have this appearance. 2. Hepatomegaly with hepatic steatosis. Discharge Plan Discharge Disposition Patient Disposition: 30 Still Patient Discharge Condition Condition: Stable Discharge Details Diagnosis: Acute cholecystitis Physicians Team ED Provider: Julia Rico Primary Care Provider: Clare Degroot Attending Provider: Khai Robbins Interventions Interventions: Vital Signs Last Done: 05/16/18 19:17 Status ED Status: Admitted Observation Patient
[2018-05-16 18:23] LABS: Chloride 104 meq/L (98-107); Potassium 3.7 meq/L (3.5-5.1); Sodium 136 meq/L (136-145)
[2018-05-16 18:26] LABS: Calcium 9.1 mg/dL (8.5-10.1)
[2018-05-16 18:27] LABS: Albumin 3.9 g/dL (3.4-5.0); Anion Gap 8 meq/L (5-15); Blood Urea Nitrogen 16 mg/dL (7-18); Carbon Dioxide 24.3 meq/L (21.0-32.0); Glucose,Random 114 mg/dL (74-106); Lipase 112 U/L (73-393)
[2018-05-16 18:28] LABS: Activated Partial Thrombo Time 26.8 sec (24.3-30.1)
[2018-05-16 18:29] LABS: Alanine Aminotransferase 40 U/L (12-78)
[2018-05-16 18:30] LABS: Aspartate Aminotransferase 22 U/L (15-37); Baso # (Auto) 0.1 th/mm3 (0.0-0.2); Baso % (Auto) 0.6 % (0.0-2.0); Eos # (Auto) 0.1 th/mm3 (0.0-0.4); Glomerular Filtration Rate 69 mL/min (>89); Hematocrit 46.9 % (39.0-51.0); Lymph # (Auto) 1.9 th/mm3 (1.0-4.8); Lymph % (Auto) 18.9 % (9.0-44.0); Mean Corpuscular HGB Conc 34.2 % (32.0-36.0); Mean Corpuscular Volume 87.6 fL (80.0-100.0); Mean Platelet Volume 9.6 fL (7.0-11.0); Mono # (Auto) 0.9 th/mm3 (0.0-0.9); Mono % (Auto) 9.5 % (0.0-8.0); Platelet Count 194 th/mm3 (150-450); Red Blood Count 5.35 mil/mm3 (4.50-5.90); Red Cell Distribution Width 12.8 % (11.6-17.2)
[2018-05-16 18:31] LABS: Total Protein 7.5 g/dL (6.4-8.2)
[2018-05-16 18:32] LABS: Alkaline Phosphatase 77 U/L (45-117)
--- NOTE | 2018-05-16 19:01 | CT ---
EXAM DATE: 05/16/2018 6:48 PM EDT AGE/SEX: 53 years / Male INDICATIONS: Right upper quadrant pain radiating to back. CLINICAL DATA: This is the patient's initial encounter. Patient reports that signs and symptoms have been present for 1 day and indicates a pain score of 7/10. MEDICAL/SURGICAL HISTORY: Gastroesophageal reflux disease. Myocardial infarction. Parkinson's disease. Hypertension. Umbilical hernia. . Back surgery. Cardiac catheterization. ORAL CONTRAST: No oral contrast ingested. RADIATION DOSE: 21.68 CTDI (mGy) COMPARISON: No prior exams available for comparison. TECHNIQUE: Multiple contiguous axial images were obtained through the abdomen and pelvis following b olus infusion of 95 ml Omnipaque 350 (iohexol) nonionic water-soluble contrast as a single exam dos e. No oral contrast ingested. Using automated exposure control and adjustment of the mA and/or kV ac cording to patient size, radiation dose was kept as low as reasonably achievable to obtain optimal di agnostic quality images. DICOM format image data is available electronically for review and comparis on. FINDINGS: Lower Lungs: The visualized lower lungs are clear. Liver: There is diffuse decreased attenuation to the liver. The gallbladder is distended. Gallbladder wall appears thickened. Spleen: Homogeneous density without enlargement. Pancreas: Unremarkable without mass or calcification. Kidneys: Normal in size and shape. No evidence of mass or hydronephrosis. Adrenal Glands: Unremarkable. Aorta: The aorta and proximal iliac vessels are grossly unremarkable without aneurysmal dilation. M inimal atherosclerotic calcifications are present. Bowel/Mesentery: The bowel loops are grossly unremarkable. The cecum and sigmoid colon have a normal configuration. Abdominal Wall: Intact. Retroperitoneum: No evidence of adenopathy in the retrocrural, para-aortic, or deep pelvic regions. Bladder: Contours are smooth. Reproductive Organs: No abnormal masses seen. Calcifications are seen in the prostate. Inguinal: The inguinal region is unremarkable without evidence of adenopathy. Bony Structures: Postsurgical hardware is seen with left-sided transpedicular screws. Injection gran ulomas are seen in the gluteal fat. CONCLUSION: 1. Hepatic steatosis. 2. Distended gallbladder. The gallbladder appears thickened. Cholecystitis can be considered. Electronically signed by: Raheem Hodge MD 05/16/2018 6:59 PM EDT
[2018-05-16] MEDS ORDERED: Morphine Inj 4 MG/ML Vial IV.PUSH ONE (19:10)
[2018-05-16] MEDS ORDERED: Piperacil/Tazo 3.375 GM Premix 50 ML IV.SIG ONE (19:21)
[2018-05-16] MEDS: Sodium Chloride 0.45 % Inj 1,000 ML IV.CONT SCH (20:16)
--- NOTE | 2018-05-16 20:33 | US ---
EXAM DATE: 05/16/2018 8:22 PM EDT AGE/SEX: 53 years / Male INDICATIONS: Right upper quadrant pain with nausea. CLINICAL DATA: This is the patient's initial encounter. Patient reports that signs and symptoms have been present for 1 day and indicates a pain score of 10/10. MEDICAL/SURGICAL HISTORY: Gastroesophageal reflux disease. Hypercholesterolemia. Hypertension . Umbilical hernia. Parkinson's disease. Heart attack. . Arthroscopy of bilateral knees and shoul ders. Back surgery. Cardiac catheterization. Carpal tunnel release of bilateral wrists. COMPARISON: [facility], CT ABDOMEN & PELVIS W CONTRAST, 05/16/2018. . MEASUREMENTS: Liver:__ 20.7 cm. Common Bile Duct:__ 7mm. FINDINGS: Liver: Increased echotexture without focal lesion or ductal dilation. The liver is enlarged. Portal Vein: Hepatopedal flow seen in portal vein. Common Duct: The common bile duct is mildly dilated at 7 mm. Gallbladder: Echogenic material seen within the gallbladder. This does not shadow. The gallbladder w all is thickened at 4 mm. There is hypoechogenicity at the periphery of the gallbladder which represe nts a mild amount of pericholecystic fluid. Pancreas: Not well visualized. Right Kidney: Normal echotexture and cortical thickness. No mass or hydronephrosis. CONCLUSION: 1. Distended gallbladder with echogenic material within the gallbladder. Gallbladder wall appears mi ldly thickened with mild pericholecystic fluid. Shadowing gallstones are not seen. The echogenic mat erial could be tumefactive sludge. Acalculous cholecystitis could have this appearance. 2. Hepatomegaly with hepatic steatosis. Electronically signed by: Raheem Hodge MD 05/16/2018 8:31 PM EDT
[2018-05-16] MEDS: Morphine Inj 4 MG/ML Vial IV.PUSH PRN (20:43)
[2018-05-16] MEDS: Piperacil/Tazo 3.375 GM Premix 50 ML IV.SIG SCH (22:16)
[2018-05-17] MEDS: Morphine Inj 4 MG/ML Vial IV.PUSH PRN ×3 (00:42→08:32)
[2018-05-17] MEDS: Piperacil/Tazo 3.375 GM Premix 50 ML IV.SIG SCH (04:23)
[2018-05-17] MEDS: Sodium Chloride 0.45 % Inj 1,000 ML IV.CONT SCH ×2 (04:25→17:07)
--- NOTE | 2018-05-17 08:51 | P.HP ---
History of Present Illness Primary Care Physician: Clare Degroot Chief Complaint: Abdominal pain History of Present Illness: 53-year-old male with known history of hypertension, hyperlipidemia, coronary disease, myocardial infarction, back pain, Parkinson's who presented to the hospital because of abdominal pain. Patient states that he is in normal state of health until very early this morning when he was in bed sleeping he woke up with sudden onset of right upper quadrant abdominal pain which states that it was sharp and stabbing. The pain came in intermittent crescendo type pain. Patient indicates that he did have associated chills. He thought it may have been just indigestion, however the pain progressively got worse we cannot tolerate the pain so he came to emergency department for evaluation. Patient had workup done and found to have acute cholecystitis. Surgeon was called by ER physician and recommended admission for surgical intervention. Patient states that he has had discomfort like this in the past but not to this extent. He usually does get heartburn because he does not have the best of diet. Presently the patient is still in significant amount of pain in the right upper quadrant. Requesting his medications to be adjusted. - Diagnosis (1) Acute cholecystitis Review of Systems All other systems reviewed negative except as stated in HPI Gastrointestinal: Reports abdominal pain PMFSH - History History Provided By: Patient, Medical Record - Medical History Medical History: Medical History (Last Reviewed 05/17/18 @ 10:41 by Khai Robbins MD) History of Parkinson's disease History of gastroesophageal reflux (GERD) History of heart attack History of high cholesterol History of hypertension History of umbilical hernia - Surgical History Surgical History: Surgical History (Last Reviewed 05/17/18 @ 10:41 by Khai Robbins MD) History of arthroscopy of both knees History of arthroscopy of both shoulders History of back surgery History of cardiac cath History of carpal tunnel release of both wrists History of elbow surgery History of umbilical hernia repair - Family History Family History: Family History (Last Reviewed 05/17/18 @ 10:41 by Khai Robbins MD) Father History of diabetes mellitus Mother History of breast cancer History of lung cancer - Tobacco History Second Hand Smoke Exposure: Yes Tobacco Use In Past 30 Days: No Smoking Status: Never smoker - Alcohol History How Often Do You Have a Drink Containing Alcohol: 2 to 4 times a month - Substance Use History Substance History: Past History - Substance Use Type Opiates Status: Sustained Remission Route Used: By Mouth, Inhalation Frequency: daily Reason for Use: Get High Comment: stopped in 2010. - Travel History Recent Travel in the [place] Within the Last 8 Weeks: No Recent Travel Out of the Country Within the Last 8 Weeks: No - Immunization History Tetanus Immunization: <5 Years Tetanus Immunization Year if Known: 2014 Hx Influenza Vaccine This Season: No Medications and Allergies Active Medications: Active Medications Sodium Chloride (1/2 Normal Saline Inj) 1,000 mls @ 125 mls/hr IV.CONT .Q8H THEO Last Admin: 05/17/18 04:25 Dose: 125 mls/hr Piperacillin/Tazobactam/Dextrose (Zosyn 3.375 Gm Premix) 50 mls @ 100 mls/hr IV.SIG Q8H THEO Last Infusion: 05/17/18 04:46 Dose: Infused Morphine Sulfate (Morphine Inj) 4 mg IV.PUSH Q4H PRN PRN Reason: ABDOMINAL PAIN Last Admin: 05/17/18 08:32 Dose: 4 mg Ondansetron HCl (Zofran Inj) 4 mg IV.PUSH Q6H PRN PRN Reason: NAUSEA Last Admin: 05/17/18 00:42 Dose: 4 mg Sodium Chloride (Ns Flush) 2 ml IV.FLUSH PRN PRN PRN Reason: FLUSH AFTER USING IV ACCESS Last Admin: 05/17/18 04:27 Dose: 2 ml Allergies Allergy/AdvReac Type Severity Reaction Status Date / Time Sulfa (Sulfonamide Allergy Severe SWELLING Verified 05/16/18 17:08 Antibiotics) AND ITCHING Home Medications Medication Instructions Recorded Confirmed Type aspirin 81 mg PO DAILY 05/16/18 05/16/18 History losartan 25 mg PO DAILY 05/16/18 05/16/18 History pantoprazole 20 mg PO DAILY 05/16/18 05/16/18 History simvastatin 20 mg PO QPM 05/16/18 05/16/18 History Exam Vital signs: Vital Signs 05/16/18 17:05 05/16/18 19:17 05/16/18 21:35 Temperature 98.7 F Pulse Rate 92 H 88 Respiratory Rate 18 22 Blood Pressure 136/78 149/78 H Pulse Oximetry 97 99 98 05/16/18 22:12 05/17/18 00:00 05/17/18 08:00 Temperature 97 F L 97.4 F L 97.5 F L Pulse Rate 70 90 76 Respiratory Rate 20 18 19 Blood Pressure 158/94 H 126/71 123/57 L Pulse Oximetry 98 95 95 Intake & Output 05/16/18 05/17/18 05/17/18 18:59 06:59 18:59 Intake Total 2300 / 2300 0 / 0 Output Total 350 / 350 Balance 1950 / 1950 0 / 0 Weight 103.8 kg 103.1 kg Intake: IV 2100 / 2100 1/2 Normal Saline Inj 1,000 ML 1000 / 1000 @ 125 mls/hr IV.CONT .Q8H THEO Rx#:[id number] Zosyn 3.375 GM Premix 50 ML @ 100 / 100 100 mls/hr IV.SIG Q8H THEO Rx#: [id number] NS Inj 1,000 ML @ Wide Open IV. 1000 / 1000 SIG BOLUS ONE Rx#:[id number] Oral 200 / 200 0 / 0 Output: Urine 350 / 350 Other: Weight On Admission 103.1 kg Narrative: GENERAL: Well-developed, well-nourished, in no acute distress. alert and orientated HEENT: Head is normocephalic without any lesions or masses noted. Facial features are symmetric. Eyes: Pupils equal round reactive to light. Extraocular muscles are intact. Conjunctivae were clear. Oropharyngeal: Pharynx without any erythema edema. Tongue is midline without deviation. Buccal mucosa is moist without any masses or lesions NECK: Supple without any masses. Trachea midline no deviation. No JVD, no bruits are appreciated CARDIAC: Regular rhythm, regular rate. S1/S2 are heard. No murmurs gallops or rubs. LUNGS: Clear to auscultation bilaterally. No wheeze, rhonchi or rales. No use of accessory muscles on inspiration or expiration. ABDOMEN: Soft, right upper quadrant abdominal pain with positive Yung sign. Positive guarding. Nondistended. Bowel sounds heard in all 4 quadrants. No organomegaly or masses. Negative rebound, EXTREMITIES: No edema, pulses are equal bilaterally. No cyanosis or clubbing NEUROLOGY: Mood and affect appear appropriate. Cranial nerves II through XII grossly intact. Muscle strength 5/5 in upper and lower extremities bilaterally. Deep tendon reflexes are 2+ in upper and lower extremities bilaterally. Results - Labs CBC & Chem 7: 05/16/18 18:00 05/16/18 18:00 Labs: Laboratory Results - last 24 hr 05/16/18 05/16/18 05/16/18 18:00 18:00 18:00 CBC w Diff Slide review pending WBC 10.0 RBC 5.35 Hgb 16.0 Hct 46.9 MCV 87.6 MCH 30.0 MCHC 34.2 RDW 12.8 Plt Count 194 MPV 9.6 Neut % (Auto) 70.0 Lymph % (Auto) 18.9 [place] % (Auto) 9.5 H Eos % (Auto) 1.0 Baso % (Auto) 0.6 Neut # (Auto) 7.0 Lymph # (Auto) 1.9 [place] # (Auto) 0.9 Eos # (Auto) 0.1 Baso # (Auto) 0.1 WBC Differential . Diff Scan Auto diff confirmed Differential Comment . PT 10.0 INR 1.0 APTT 26.8 Sodium 136 Potassium 3.7 Chloride 104 Carbon Dioxide 24.3 Anion Gap 8 BUN 16 Creatinine 1.10 Estimated GFR 69 L Random Glucose 114 H Calcium 9.1 Total Bilirubin 0.6 AST 22 ALT 40 Alkaline Phosphatase 77 Total Protein 7.5 Albumin 3.9 Lipase 112 - Imaging Impressions Abdomen/Pelvis CT 05/16/18 17:43 CONCLUSION: 1. Hepatic steatosis. 2. Distended gallbladder. The gallbladder appears thickened. Cholecystitis can be considered. Gallbladder Ultrasound 05/16/18 19:09 CONCLUSION: 1. Distended gallbladder with echogenic material within the gallbladder. Gallbladder wall appears mildly thickened with mild pericholecystic fluid. Shadowing gallstones are not seen. The echogenic material could be tumefactive sludge. Acalculous cholecystitis could have this appearance. 2. Hepatomegaly with hepatic steatosis. Caprini VTE Risk Assessment Caprini VTE Risk Assessment: No/Low Risk (score <= 1) Caprini Risk Assessment Model: Point Value = 1 Point Value = 2 Point Value = 3 Point Value = 5 Age 41-60 Minor surgery BMI > 25 kg/m2 Swollen legs Varicose veins or History of unexplained or recurrent spontaneous Oral contraceptives or hormone replacement Sepsis (< 1 month) Serious lung disease, including pneumonia (< 1 month) Abnormal pulmonary function Acute myocardial infarction Congestive heart failure (< 1 month) History of inflammatory bowel disease Medical patient at bed rest Age 61-74 Arthroscopic surgery Major open surgery (> 45 min) Laparoscopic surgery (> 45 min) Malignancy Confined to bed (> 72 hours) Immobilizing plaster cast Central venous access Age >= 75 History of VTE Family history of VTE Factor V Leiden Prothrombin [id number] Lupus anticoagulant Anticardiolipin antibodies Elevated serum homocysteine Heparin-induced thrombocytopenia Other congenital or acquired thrombophilia Stroke (< 1 month) Elective arthroplasty Hip, pelvis, or leg fracture Acute spinal cord injury (< 1 month) Prophylaxis Regimen: Total Risk Factor Score Risk Level Prophylaxis Regimen 0-1 Low Early ambulation 2 Moderate Order ONE of the following: *Sequential Compression Device (SCD) *Heparin 5000 units SQ BID 3-4 Higher Order ONE of the following medications: *Heparin 5000 units SQ TID *Enoxaparin/Lovenox 40 mg SQ daily (WT < 150 kg, CrCl > 30 mL/min) *Enoxaparin/Lovenox 30 mg SQ daily (WT < 150 kg, CrCl > 10-29 mL/min) *Enoxaparin/Lovenox 30 mg SQ BID (WT < 150 kg, CrCl > 30 mL/min) AND/OR *Sequential Compression Device (SCD) 5 or more Highest Order ONE of the following medications: *Heparin 5000 units SQ TID (Preferred with Epidurals) *Enoxaparin/Lovenox 40 mg SQ daily (WT < 150 kg, CrCl > 30 mL/min) *Enoxaparin/Lovenox 30 mg SQ daily (WT < 150 kg, CrCl > 10-29 mL/min) *Enoxaparin/Lovenox 30 mg SQ BID (WT < 150 kg, CrCl > 30 mL/min) AND *Sequential Compression Device (SCD) Assessment and Plan - Assessment (1) Acute cholecystitis Code(s): K81.0 - Acute cholecystitis Status: Acute - Plan Acute cholecystitis -Patient admitted under medical service with surgical consultation -Discussed with general surgery who is trying to get the patient scheduled for surgery today -Keep patient n.p.o. -Continue IV fluids -Continue Zosyn for empirical antibiotic -Patient has undergone laparoscopic cholecystectomy. Discussed with general surgeon Dr. Robbins, he indicated patient is clinically stable and okay to discharge home with outpatient follow-up. Hypertension, hyperlipidemia, coronary disease -Continue home medications after surgery -Vasotec IV as needed for blood pressure management DVT prevention -Low risk, early ambulation Discussed Condition With: Patient, nursing staff, general surgery Discharge Planning: Discharge home in stable condition Activity: Ad cal. Diet: Healthy heart diet Medication per medication reconciliation Follow-up with primary medical doctor in 1 week, follow-up with general surgery in 2 weeks
[2018-05-17] MEDS ORDERED: Morphine Sulfate Inj 2 MG/ML Vial IV.PUSH PRN (08:58)
[2018-05-17] MEDS ORDERED: Morphine Inj 4 MG/ML Vial IV.PUSH PRN (09:00)
--- NOTE | 2018-05-17 09:12 | P.CONGS ---
[facility] Gen Surgery Consult Note Consult date: 05/17/18 Reason for consult: abdominal pain Requesting physician: Ryan Hogue Narrative: CONSULTATION NOTE FOR SURGICAL ATTENDING, DR. KHAI ROBBINS This is a 53-year-old male with a past medical history of Parkinson's disease, GERD, myocardial infarction in 2014, dyslipidemia, hypertension and umbilical hernia with revision. Patient reports he has had right upper quadrant pain that began about 24 hours ago. He reports associated nausea without any vomiting. He reports associated chills without any fevers. The patient reports he has never had pain like this before. The patient reports no dietary intolerances. The patient was unsure if he had "food poisoning" from barbecue pork and coleslaw. His had the same meal but did not have any abdominal pain. A CT abdomen pelvis was obtained which shows a distended gallbladder with a thickened wall. An ultrasound was also obtained which shows a distended gallbladder, mildly thickened gallbladder wall and pericholecystic fluid. The patient's white blood cell count is normal. The patient's liver enzymes are normal. A general surgery consultation has been requested. A General Surgery consultation has been requested. Review of Systems Constitutional: Reports chills, Denies fever(s) Eyes: Denies blurry vision Ears, Nose, Mouth, and Throat: Denies mouth pain Cardiovascular: Denies chest pain, Denies chest pain at rest, Denies chest pain with activity Respiratory: Denies change in phlegm color, Denies chest congestion, Denies cough Gastrointestinal: Reports abdominal pain, Reports nausea, Denies vomiting Genitourinary: Denies urinary urgency Musculoskeletal: Denies abnormal walking Skin/Breast: Denies lesions Neurologic: Denies abnormal movements, Denies headache(s) Psychiatric: Denies anxiety, Denies depression Endocrine: Denies cold intolerance, Denies heat intolerance Hematologic/Lymphatic: Denies easy bleeding Allergic/Immunologic: Denies GI upset with certain foods PMFSH - History History Provided By: Patient - Medical History Medical History: Medical History (Last Reviewed 05/17/18 @ 10:41 by Khai Robbins MD) History of Parkinson's disease History of gastroesophageal reflux (GERD) History of heart attack History of high cholesterol History of hypertension History of umbilical hernia - Surgical History Surgical History: Surgical History (Last Reviewed 05/17/18 @ 10:41 by Khai Robbins MD) History of arthroscopy of both knees History of arthroscopy of both shoulders History of back surgery History of cardiac cath History of carpal tunnel release of both wrists History of elbow surgery History of umbilical hernia repair - Family History Family History: Family History (Last Reviewed 05/17/18 @ 10:41 by Khai Robbins MD) Father History of diabetes mellitus Mother History of breast cancer History of lung cancer - Tobacco History Tobacco Use In Past 30 Days: No Smoking Status: Never smoker - Alcohol History How Often Do You Have a Drink Containing Alcohol: 2 to 4 times a month - Substance Use History Substance History: No History of Abuse - Substance Use Type Opiates Frequency: daily - Travel History Recent Travel in the [place] Within the Last 8 Weeks: No Recent Travel Out of the Country Within the Last 8 Weeks: No - Immunization History Tetanus Immunization: <5 Years Tetanus Immunization Year if Known: 2014 Hx Influenza Vaccine This Season: No Medications and Allergies Allergies Allergy/AdvReac Type Severity Reaction Status Date / Time Sulfa (Sulfonamide Allergy Severe SWELLING Verified 05/16/18 17:08 Antibiotics) AND ITCHING Home Medications Medication Instructions Recorded Confirmed Type aspirin 81 mg PO DAILY 05/16/18 05/16/18 History losartan 25 mg PO DAILY 05/16/18 05/16/18 History pantoprazole 20 mg PO DAILY 05/16/18 05/16/18 History simvastatin 20 mg PO QPM 05/16/18 05/16/18 History Active Medications: Active Medications Enalaprilat (Vasotec Inj) 1.25 mg IV.PUSH Q6H PRN PRN Reason: SBP>160, DBP>90 Sodium Chloride (1/2 Normal Saline Inj) 1,000 mls @ 125 mls/hr IV.CONT .Q8H THEO Last Admin: 05/17/18 04:25 Dose: 125 mls/hr Piperacillin/Tazobactam/Dextrose (Zosyn 3.375 Gm Premix) 50 mls @ 100 mls/hr IV.SIG Q8H [facility] Last Infusion: 05/17/18 04:46 Dose: Infused Morphine Sulfate (Morphine Inj) 4 mg IV.PUSH Q3H PRN PRN Reason: Pain 6-10 Morphine Sulfate (Morphine Inj) 2 mg IV.PUSH Q3H PRN PRN Reason: pain 1-5 Ondansetron HCl (Zofran Inj) 4 mg IV.PUSH Q6H PRN PRN Reason: NAUSEA Last Admin: 05/17/18 00:42 Dose: 4 mg Sodium Chloride (Ns Flush) 2 ml IV.FLUSH PRN PRN PRN Reason: FLUSH AFTER USING IV ACCESS Last Admin: 05/17/18 04:27 Dose: 2 ml Exam Vital signs: Vital Signs 05/16/18 17:05 05/16/18 19:17 05/16/18 21:35 Temperature 98.7 F Pulse Rate 92 H 88 Respiratory Rate 18 22 Blood Pressure 136/78 149/78 H Pulse Oximetry 97 99 98 05/16/18 22:12 05/17/18 00:00 05/17/18 08:00 Temperature 97 F L 97.4 F L 97.5 F L Pulse Rate 70 90 76 Respiratory Rate 20 18 19 Blood Pressure 158/94 H 126/71 123/57 L Pulse Oximetry 98 95 95 Intake & Output 05/16/18 05/17/18 05/17/18 18:59 06:59 18:59 Intake Total 2300 / 2300 0 / 0 Output Total 350 / 350 Balance 1950 / 1950 0 / 0 Weight 103.8 kg 103.1 kg Intake: IV 2100 / 2100 1/2 Normal Saline Inj 1,000 ML 1000 / 1000 @ 125 mls/hr IV.CONT .Q8H THEO Rx#:[id number] Zosyn 3.375 GM Premix 50 ML @ 100 / 100 100 mls/hr IV.SIG Q8H THEO Rx#: [id number] NS Inj 1,000 ML @ Wide Open IV. 1000 / 1000 SIG BOLUS ONE Rx#:[id number] Oral 200 / 200 0 / 0 Output: Urine 350 / 350 Other: Weight On Admission 103.1 kg Narrative: GENERAL: Very pleasant 53 year old male resting in bed in moderate acute distress secondary to abdominal pain. SKIN: Warm and dry. HEAD: Atraumatic. Normocephalic. EYES: Pupils equal and round. No scleral icterus. No injection or drainage. ENT: No nasal bleeding or discharge. Mucous membranes pink and moist. NECK: Trachea midline. CARDIOVASCULAR: Regular rate and rhythm. RESPIRATORY: No accessory muscle use. Clear to auscultation. Breath sounds equal bilaterally. GASTROINTESTINAL: Abdomen soft, nondistended. RUQ tenderness to palpation. Well healed scar inferior to umbilicus. No visible hernias. Positive Yung sign MUSCULOSKELETAL: Extremities without clubbing, cyanosis, or edema. No obvious deformities. NEUROLOGICAL: Awake and alert. No obvious cranial nerve deficits. Motor grossly within normal limits. Five out of 5 muscle strength in the arms and legs. Normal speech. PSYCHIATRIC: Appropriate mood and affect; insight and judgment normal. Patient has numerous tattoos Results - Labs 05/16/18 18:00 05/16/18 18:00 Abnormal lab results 05/16/18 05/16/18 Range/Units 18:00 18:00 [place] % (Auto) 9.5 H (0.0-8.0) % Estimated GFR 69 L (>89) mL/min Random Glucose 114 H (74-106) mg/dL Diabetes panel 05/16/18 Range/Units 18:00 Sodium 136 (136-145) meq/L Potassium 3.7 (3.5-5.1) meq/L Chloride 104 (98-107) meq/L Carbon Dioxide 24.3 (21.0-32.0) meq/L BUN 16 (7-18) mg/dL Creatinine 1.10 (0.60-1.30) mg/dL Calcium 9.1 (8.5-10.1) mg/dL AST 22 (15-37) U/L ALT 40 (12-78) U/L Alkaline Phosphatase 77 (45-117) U/L Total Protein 7.5 (6.4-8.2) g/dL Albumin 3.9 (3.4-5.0) g/dL Calcium panel 05/16/18 Range/Units 18:00 Calcium 9.1 (8.5-10.1) mg/dL Albumin 3.9 (3.4-5.0) g/dL Pituitary panel 05/16/18 Range/Units 18:00 Sodium 136 (136-145) meq/L Potassium 3.7 (3.5-5.1) meq/L Chloride 104 (98-107) meq/L Carbon Dioxide 24.3 (21.0-32.0) meq/L BUN 16 (7-18) mg/dL Creatinine 1.10 (0.60-1.30) mg/dL Calcium 9.1 (8.5-10.1) mg/dL Adrenal panel 05/16/18 Range/Units 18:00 Sodium 136 (136-145) meq/L Potassium 3.7 (3.5-5.1) meq/L Chloride 104 (98-107) meq/L Carbon Dioxide 24.3 (21.0-32.0) meq/L BUN 16 (7-18) mg/dL Creatinine 1.10 (0.60-1.30) mg/dL Calcium 9.1 (8.5-10.1) mg/dL Total Bilirubin 0.6 (0.2-1.0) mg/dL AST 22 (15-37) U/L ALT 40 (12-78) U/L Alkaline Phosphatase 77 (45-117) U/L Total Protein 7.5 (6.4-8.2) g/dL Albumin 3.9 (3.4-5.0) g/dL All other labs normal. ITS Impressions Abdomen/Pelvis CT 05/16/18 17:43 CONCLUSION: 1. Hepatic steatosis. 2. Distended gallbladder. The gallbladder appears thickened. Cholecystitis can be considered. Gallbladder Ultrasound 05/16/18 19:09 CONCLUSION: 1. Distended gallbladder with echogenic material within the gallbladder. Gallbladder wall appears mildly thickened with mild pericholecystic fluid. Shadowing gallstones are not seen. The echogenic material could be tumefactive sludge. Acalculous cholecystitis could have this appearance. 2. Hepatomegaly with hepatic steatosis. - Imaging CT scan - abdomen: report reviewed, image reviewed CT scan - pelvis: report reviewed, image reviewed US - abdomen: report reviewed, image reviewed Assessment and Plan - Assessment (1) Right upper quadrant abdominal pain Code(s): R10.11 - Right upper quadrant pain Status: Acute (2) Acute cholecystitis Code(s): K81.0 - Acute cholecystitis Status: Acute Plan: 53 year old male with acute cholecystitis -Will plan for laparoscopic cholecystectomy today if able to add on to OR scheduled -Obtain consents -NPO -Continue IVF -Adjusted pain medications -Explained procedure in detail including risks and benefits -All questions answered -Thank you for this consult; We will continue to follow (3) Abnormal findings on diagnostic imaging of liver and biliary tract Code(s): R93.2 - Abnormal findings on diagnostic imaging of liver and biliary tract Status: Acute (4) Gallstones Code(s): K80.20 - Calculus of gallbladder without cholecystitis without obstruction Status: Acute - Plan Discussed Condition With: Dr. Rosendo Parmar and Raheem Faulkner. and Mrs. Cline - Attending Attestation CONSULTATION NOTE FOR SURGICAL ATTENDING, DR. KHAI ROBBINS I agree with above assessment and plan. Patient retired senior vice president and chief information officer Numerous tattoos Classic signs and symptomatology consistent with biliary colic Positive Yung sign Discussed in detail laparoscopic cholecystectomy possible open The exam, history, and the medical decision-making described in the above note were completed with the assistance of the mid-level provider. I reviewed and agree with the findings presented. I attest that I had a [id number] encounter with the patient on the same day, and personally performed and documented my assessment and findings in the medical record. The following services were provided during this hospital visit: Chart data review, vital sign assessments/reviewing monitor data Review of consultations notes if present. Medication orders/review and/or management Ordering and/or reviewing lab tests Ordering and/or interpreting/reviewing x-rays and/or diagnostic studies Care of the patient and discussion of the patient with the care team Documentation time To help prompt me to consider important information that might be impacting today's encounter and assessment, Information from prior notes written by myself or my colleagues may have been "brought forward/copy and pasted" into today's note.
[2018-05-17] MEDS ORDERED: Famotidine PF Inj 20 MG/2 ML Vial ONE (11:52)
[2018-05-17] MEDS ORDERED: HYDROmorphone PF Inj 2 MG/ML Vial ONE (11:56)
[2018-05-17] MEDS ORDERED: Bupivacaine/Epinephrine Inj 0.25% 50 ML Vial ONE (13:10)
[2018-05-17] MEDS ORDERED: Lidocaine PF 1% Inj 5 ML Syringe INFILTRATN ONE (13:13)
[2018-05-17] MEDS ORDERED: Neostigmine Inj 5 MG/5 ML Syringe IV.PUSH ONE (13:13)
--- NOTE | 2018-05-17 13:56 | P.OP ---
- Preoperative Diagnosis (1) Acute cholecystitis (2) Right upper quadrant abdominal pain (3) Abnormal findings on diagnostic imaging of liver and biliary tract (4) Gallstones - Postoperative Diagnosis (1) S/P laparoscopic cholecystectomy (2) Acute cholecystitis (3) Right upper quadrant abdominal pain (4) Abnormal findings on diagnostic imaging of liver and biliary tract (5) Gallstones Date of procedure: 05/17/18 Procedure: PROCEDURE: Laparoscopic Cholecystectomy ANESTHESIA: General SURGEON: Khai Robbins M.D. PROCEDURE DETAILS The patient was brought to the operating room and after proper identification. The patient was intubated after the induction of appropriate anesthesia. The patient remained under general anesthesia for the duration of the case. The patient was prepped with an antiseptic over the abdomen in the usual fashion and then he was draped in the usual sterile fashion. Following the draping, the pneumoperitoneum was established after placing a subxiphoid directly into the peritoneum. He had a previous umbilical hernia repair with mesh the omentum is stuck up to the mesh at the umbilical area and this is taken down with sharp dissection to facilitate placement of a sub-umbilical port After appropriate insufflation a scope was inserted and the abdomen was visually inspected to be benign in gross visualization. Next, another 5 mm port was placed in between the 2 ports. All port sites were anesthetized with a Marcaine solution. The gallbladder was easily identified. There were a few adhesions. No intraabdominal fluid. Upon retraction of the gallbladder, the infundibulum was identified. After some blunt dissection, the cystic duct was identified and then skeletonized using the small grasper. After appropriate identification of the cystic duct, it was clipped 3 times with 2 clips staying, 1 clip going. It was then transected with scissors. This was performed without any complication. Next, a cystic artery was identified and 2 surgical clips on the proximal end and 1 surgical clip on the distal end were applied and this was transected using the laparoscopic scissors. Following this, the gallbladder was easily retracted back and electrocautery was used to dissect the gallbladder fossa. There was a well-established plane. After application of the clips, no further bleeding from this site was appreciated. Hemostasis was attained on the gallbladder fossa using a small amount of electrocautery. Following the removal of the gallbladder from the gallbladder fossa, it was placed in an endobag and subsequently removed from the supraumbilical port site. We double checked for hemostasis at the cystic artery. Also checked the cystic duct stump which showed no bile leakage. All ports were then removed The infra-umbilical fascia was closed directly with 0 Vicryl and then the dermis was closed at all 3 incision sites with a 4-0 absorbable monofilament in a running subcuticular manner. The fascia was closed in a simple interrupted manner. Steri-Strips and dressings were placed over the incision sites. The patient was awakened from anesthesia. The patient was returned to post-anesthesia care unit in a stable condition. DETAIL SPECIFIC TO THIS PROCEDURE: Patient had a fairly inflamed gallbladder He had adhesions to the anterior abdominal wall at his umbilicus from his umbilical hernia repair these were taken down with sharp dissection to facilitate placement of a 5 mm port just lateral to the mesh that had been previously placed Khai Robbins M.D. Anesthesia: [facility] Surgeon: Khai Robbins MD Pathology: other (Gallbladder)
[2018-05-17] MEDS ORDERED: Glycopyrrolate 0.2 MG/ML Vial ONE (14:23)
[2018-05-17] MEDS ORDERED: fentaNYL Citrate Inj 100 MCG/2 ML Ampul ONE (14:23)
[2018-05-17] MEDS ORDERED: *Meperidine Inj 25 MG/ML Vial PERIprocedural Use ONLY ONE (14:25)
[2018-05-17 14:43] VITALS: RESP 14; TEMP 98
[2018-05-17 15:05] VITALS: BP 136/76; PULSE 82; O2SAT 98
[2018-05-17] MEDS ORDERED: Piperacil/Tazo 3.375 GM Premix 50 ML IV.SIG SCH (22:00)
--- NOTE | 2018-05-18 21:55 | ECG ---
Date Performed: 05/17/2018 Time Performed: 12:12:03 PTAGE: 53 years EKG: SINUS BRADYCARDIA BORDERLINE ECG PREVIOUS TRACING : 02/05/2017 03.23 Since the previous tracing, no significant change noted DOCTOR: Denton Conti Interpretating Date/Time 05/18/2018 21:54:21
== END 2018-05-17 18:54 | disposition home or self-care (01) ==
LOC: PHEDA 16:52 → PHED 16:52 → PHEDA 21:42 → PH3 21:50
PROVIDERS: ADMIT Hospitalist; ATTEND Hospitalist
DX: K81.1 Chronic cholecystitis

== ENCOUNTER 2018-07-20 15:31 | Observation (INO) ==
[2018-07-20 16:22] LABS: Baso # (Auto) 0.1 th/mm3 (0.0-0.2); Baso % (Auto) 1.1 % (0.0-2.0); Eos # (Auto) 0.2 th/mm3 (0.0-0.4); Eos % (Auto) 2.3 % (0.0-4.0); Hematocrit 47.4 % (39.0-51.0); Hemoglobin 16.3 gm/dL (13.0-17.0); Lymph # (Auto) 2.1 th/mm3 (1.0-4.8); Lymph % (Auto) 31.2 % (9.0-44.0); Mean Corpuscular HGB Conc 34.4 % (32.0-36.0); Mean Corpuscular Hemoglobin 29.9 pg (27.0-34.0); Mean Corpuscular Volume 86.9 fL (80.0-100.0); Mean Platelet Volume 8.7 fL (7.0-11.0); Mono # (Auto) 0.5 th/mm3 (0.0-0.9); Mono % (Auto) 7.2 % (0.0-8.0); Neut # (Auto) 3.9 th/mm3 (1.8-7.7); Neut % (Auto) 58.2 % (16.0-70.0); Platelet Count 204 th/mm3 (150-450); Red Blood Count 5.46 mil/mm3 (4.50-5.90); Red Cell Distribution Width 12.4 % (11.6-17.2); White Blood Count 6.8 th/mm3 (4.0-11.0)
[2018-07-20 16:25] LABS: Chloride 106 meq/L (98-107); Sodium 139 meq/L (136-145)
[2018-07-20 16:26] LABS: Potassium 4.3 meq/L (3.5-5.1)
[2018-07-20 16:29] LABS: Anion Gap 8 meq/L (5-15); Blood Urea Nitrogen 14 mg/dL (7-18); Carbon Dioxide 25.5 meq/L (21.0-32.0); Glucose,Random 83 mg/dL (74-106)
--- NOTE | 2018-07-20 16:30 | XR ---
EXAM DATE: 07/20/2018 4:14 PM EDT AGE/SEX: 53 years / Male INDICATIONS: Chest pain. CLINICAL DATA: This is the patient's initial encounter. Patient reports that signs and symptoms have been present for 1 day and indicates a pain score of 4/10. MEDICAL/SURGICAL HISTORY: . Cardiac blockages, asthma. . Cardiac caths. COMPARISON: [facility] [place], [place]/04[place]. . FINDINGS: A single AP view of the chest demonstrates the lungs to be symmetrically aerated without evidence of mass, infiltrate or effusion. The cardiomediastinal contours are unremarkable. Osseous structures a re intact. CONCLUSION: No acute cardiopulmonary findings are identified. Exam is similar previous of 02/04/2017. Electronically signed by: Mitul Manning MD 07/20/2018 4:29 PM EDT
[2018-07-20 16:32] LABS: Alanine Aminotransferase 76 U/L (12-78); Aspartate Aminotransferase 54 U/L (15-37); Glomerular Filtration Rate 78 mL/min (>89)
[2018-07-20 16:34] LABS: Total Protein 7.4 g/dL (6.4-8.2)
[2018-07-20 16:35] LABS: Alkaline Phosphatase 81 U/L (45-117); Creatine Kinase 189 U/L (39-308)
[2018-07-20 16:47] LABS: Creatine Kinase MB 1.3 ng/mL (0.5-3.6)
--- NOTE | 2018-07-20 16:53 | ED ---
HPI General Chief Complaint: Chest Pain Stated Complaint: Chest Pain Time Seen by Provider: 07/20/18 15:49 History of Present Illness HPI narrative: This is a 53-year-old male with history of coronary artery disease, hyperlipidemia, hypertension, who presents today with intermittent chest pain. Patient states he had pressure-like sensation that he rates a 6 out of 10 on his left chest. He reports it radiates to his left upper jaw and down his left arm. The patient states that this past weekend he was in [facility] where he had chest pain. He states at that time they found 1 of his cardiac enzymes to be elevated. The question was whether or not they would do a cardiac catheter versus a stress test. According to him, the manager of radiology told him that only 1 of his markers was elevated and there was concern that it may be related to his statin medication. He denies any nausea, diaphoresis. Patient denies any pain at this time. He does take a baby aspirin daily. He does report that he was taken off his statin when he was seen in the hospital previously. The patient reports that he called Dr. Byrne with the [facility] heart group and was scheduled to be seen in 2 weeks. He states that he call them today to tell them about his pain and they told him to come here and be evaluated. There is no nausea or diaphoresis associated with the pain. Related Data Home Medications Medication Instructions Recorded Confirmed aspirin 81 mg PO DAILY 05/16/18 07/20/18 losartan 25 mg PO DAILY 05/16/18 07/20/18 pantoprazole 20 mg PO DAILY 05/16/18 07/20/18 Previous Rx's Medication Instructions Recorded hydrocodone-acetaminophen [[place]] 1 tab PO Q6H PRN #25 tab 05/17/18 Allergies Allergy/AdvReac Type Severity Reaction Status Date / Time Sulfa (Sulfonamide Allergy Severe SWELLING Verified 05/16/18 17:08 Antibiotics) AND ITCHING Review of Systems ROS: all other systems reviewed are negative Constitutional Reports system reviewed and no additional complaints, except as docu Eyes Reports system reviewed and no additional complaints, except as docu ENT Reports system reviewed and no additional complaints, except as docu Cardiovascular Reports chest pain, Denies diaphoresis, Denies palpitations and Denies dyspnea Respiratory Denies chest congestion, Denies cough and Denies dyspnea Gastrointestinal Reports system reviewed and no additional complaints, except as docu Genitourinary Reports system reviewed and no additional complaints, [facility] Musculoskeletal Reports system reviewed and no additional complaints, except as [facility] Integumentary/Breasts Reports system reviewed and no additional complaints, except as [facility] Neurologic Reports system reviewed and no additional complaints, except as docu PMFSH Social History Social History Substance History: No History of Abuse Second Hand Smoke Exposure: Yes Smoking Status: Never smoker How Often Do You Have a Drink Containing Alcohol: Monthly or less Recent Travel in [facility] within the Last 8 Weeks: No Immunization History Tetanus Immunization: <5 Years Tetanus Immunization Year if Known: 2015 Exam Narrative Exam Narrative: GENERAL: Well-developed well-nourished male in no acute respiratory distress. SKIN: Focused skin assessment warm/dry. HEAD: Atraumatic. Normocephalic. EYES: No scleral icterus. No injection or drainage. ENT: No nasal bleeding or discharge. Mucous membranes pink and moist. NECK: Trachea midline. No JVD. Supple. CARDIOVASCULAR: Regular rate and rhythm. No murmur appreciated. RESPIRATORY: No accessory muscle use. Clear to auscultation. Breath sounds equal bilaterally. GASTROINTESTINAL: Abdomen soft, non-tender, nondistended. Hepatic and splenic margins not palpable. MUSCULOSKELETAL: No obvious deformities. No clubbing. No cyanosis. No edema. NEUROLOGICAL: Awake and alert. No obvious cranial nerve deficits. Motor grossly within normal limits. Normal speech. Course Initial Documented Vital Signs Pulse Rate 60 07/20/18 16:04 Pulse Oximetry 97 07/20/18 16:04 Last Documented Vital Signs Temperature 98.4 F 07/20/18 16:24 Pulse Rate 59 L 07/20/18 17:07 Respiratory Rate 16 07/20/18 17:07 Blood Pressure 150/77 H 07/20/18 17:07 Pulse Oximetry 96 07/20/18 17:07 Medical Decision Making MDM Narrative Medical decision making narrative: 53-year-old male with history of hypertension , dyslipidemia, coronary disease, presents today with complaints of chest pain. Patient was seen at [facility] this past weekend and admitted for chest pain. He states at that time they wanted to do a stress test however he opted to come to [facility] where he lives to have all of his studies done. The patient was scheduled to be seen by [facility] heart group however they told him if he was still having discomfort he should come to the ER for evaluation. His EKG and cardiac enzymes are within normal limits. He will be admitted to the chest pain center for rule out and stress test. [facility] above chest pain admission. Medical Screen Exam Complete: Yes Emergency Medical Condition: Yes Differential Diagnosis Differential Diagnosis: ACS versus rhabdomyolysis versus noncardiac chest pain Lab Data Result diagrams: 07/20/18 15:48 07/20/18 15:48 Lab Results 07/20/18 07/20/18 Range/Units 15:48 15:48 CBC w Diff Auto diff final WBC 6.8 (4.0-11.0) th/mm3 RBC 5.46 (4.50-5.90) mil/mm3 Hgb 16.3 (13.0-17.0) gm/dL Hct 47.4 (39.0-51.0) % MCV 86.9 (80.0-100.0) fL MCH 29.9 (27.0-34.0) pg MCHC 34.4 (32.0-36.0) % RDW 12.4 (11.6-17.2) % Plt Count 204 (150-450) th/mm3 MPV 8.7 (7.0-11.0) fL Neut % (Auto) 58.2 (16.0-70.0) % Lymph % (Auto) 31.2 (9.0-44.0) % [place] % (Auto) 7.2 (0.0-8.0) % Eos % (Auto) 2.3 (0.0-4.0) % Baso % (Auto) 1.1 (0.0-2.0) % Neut # (Auto) 3.9 (1.8-7.7) th/mm3 Lymph # (Auto) 2.1 (1.0-4.8) th/mm3 [place] # (Auto) 0.5 (0.0-0.9) th/mm3 Eos # (Auto) 0.2 (0.0-0.4) th/mm3 Baso # (Auto) 0.1 (0.0-0.2) th/mm3 WBC Differential . Differential Comment . Sodium 139 (136-145) meq/L Potassium 4.3 (3.5-5.1) meq/L Chloride 106 (98-107) meq/L Carbon Dioxide 25.5 (21.0-32.0) meq/L Anion Gap 8 (5-15) meq/L BUN 14 (7-18) mg/dL Creatinine 1.00 (0.60-1.30) mg/dL Estimated GFR 78 L (>89) mL/min Random Glucose 83 (74-106) mg/dL Calcium 9.0 (8.5-10.1) mg/dL Total Bilirubin 0.5 (0.2-1.0) mg/dL AST 54 H (15-37) U/L ALT 76 (12-78) U/L Alkaline Phosphatase 81 (45-117) U/L Total Creatine Kinase 189 (39-308) U/L CK-MB (CK-2) 1.3 (0.5-3.6) ng/mL Troponin I Less than 0.02 L (0.02-0.05) ng/mL Total Protein 7.4 (6.4-8.2) g/dL Albumin 4.0 (3.4-5.0) g/dL Imaging Data Radiologist's impression: Chest X-Ray 07/20/18 15:49 CONCLUSION: No acute cardiopulmonary findings are identified. Exam is similar previous of . Discharge Plan Discharge Disposition Patient Disposition: 30 Still Patient Discharge Details Diagnosis: Chest pain, Hypertension, Dyslipidemia, Coronary artery disease Physicians Team ED Provider: Sixto Mota Primary Care Provider: UNKNOWN, Rxs /Orders / Referrals /Forms Prescriptions: No Action pantoprazole 20 mg Tablet,Delayed Release (Dr/Ec) 20 mg PO DAILY RF: 0 losartan 25 mg Tablet 25 mg PO DAILY RF: 0 aspirin 81 mg Tablet,Chewable 81 mg PO DAILY RF: 0 hydrocodone-acetaminophen [[place]] 5-325 mg Tablet 1 tab PO Q6H PRN (Reason: Pain 5-10) Qty: 25 RF: 0 Discharge Instructions Patient Printed Instructions: Chest Pain (ED) Discharge Interventions Interventions: Vital Signs Last Done: 07/20/18 17:07 Status ED Status: With Doctor
[2018-07-20] MEDS ORDERED: Acetaminophen 500 MG Tablet PO PRN (19:20)
[2018-07-20] MEDS ORDERED: Morphine Inj 4 MG/ML Vial IV.PUSH PRN (19:20)
[2018-07-20 20:41] LABS: Creatine Kinase 128 U/L (39-308)
[2018-07-20 23:14] LABS: Creatine Kinase 119 U/L (39-308)
--- NOTE | 2018-07-21 08:36 | P.HP ---
History of Present Illness Primary Care Physician: UNKNOWN Chief Complaint: Chest pain History of Present Illness: This is a 53-year-old male patient with a known medical history of CAD, hyperlipidemia and hypertension presented to the ED with complaints of chest pain. Patient states that over the weekend he developed a midsternal chest pressure that radiated to his neck as well as his arm, rates the pain a 6 out of 10 at its worst on pain scale, he states that he presented to [facility] this weekend due to the pain. At that time they worked him up with cardiac enzymes and states that his CPK was elevated. His troponins were negative. Patient states that he requested to be discharged so that he could come over to the [facility] here with his family and to undergo cardiac evaluation. It should be noted at that time the doctor stopped his statin medication due to the elevated CPK. Patient denies any recent fevers, chills, cough, shortness of breath, abdominal pain, nausea, vomiting, diarrhea or dysuria. He does follow with Dr. Byrne, cardiology, last seen roughly 6 months ago, he does have an appointment here in the next 2 weeks. He states that his last stress test was roughly 4 years ago which was reportedly negative per patient's report. He also underwent a cardiac catheterization roughly 10 years ago and at that time he was told that he had a 60% blockage in 1 of his arteries and did not require a stent at that time. Patient denies any tobacco abuse. It should be noted that patient has a significant family medical history of his father having an VT at the age of 45 and undergoing a CABG. - Diagnosis (1) Chest pain Review of Systems All other systems reviewed negative except as stated in HPI PMFSH - History History Provided By: Patient - Medical History Medical History: Medical History (Last Reviewed 07/21/18 @ 08:32 by Adela Goldberg) History of Parkinson's disease History of gastroesophageal reflux (GERD) History of heart attack History of high cholesterol History of hypertension History of umbilical hernia - Surgical History Surgical History: Surgical History (Last Reviewed 07/21/18 @ 08:32 by Adela Goldberg) History of arthroscopy of both knees History of arthroscopy of both shoulders History of back surgery History of cardiac cath History of carpal tunnel release of both wrists History of elbow surgery History of umbilical hernia repair - Family History Family History: Family History (Last Reviewed 07/21/18 @ 08:32 by Adela Goldberg) Father History of diabetes mellitus Mother History of breast cancer History of lung cancer - Social History I have reviewed the patient's Social History: Yes - Tobacco History Second Hand Smoke Exposure: No Smoking Status: Never smoker - Alcohol History How Often Do You Have a Drink Containing Alcohol: Monthly or less - Substance Use History Substance History: Past History - Travel History Recent Travel in the [place] Within the Last 8 Weeks: No Recent Travel Out of the Country Within the Last 8 Weeks: No - Immunization History Tetanus Immunization: <5 Years Tetanus Immunization Year if Known: 2014 Hx Influenza Vaccine This Season: Yes Medications and Allergies Active Medications: Active Medications Acetaminophen (Tylenol) 500 mg PO Q4H PRN PRN Reason: HEADACHE Hydrocodone Bitart/Acetaminophen ([place] 7.5/325) 1 tab PO Q4H PRN PRN Reason: PAIN SCALE 1 TO 7 Aspirin (Aspirin) 325 mg PO DAILY [facility] Losartan Potassium (Cozaar) 25 mg PO DAILY [facility] Morphine Sulfate (Morphine Inj) 2 mg IV.PUSH Q4H PRN PRN Reason: PAIN SCALE 8 TO 10 Nitroglycerin (Nitrostat Sl) 0.4 mg SL Q5M PRN PRN Reason: CHEST PAIN Ondansetron HCl (Zofran Inj) 4 mg IV.PUSH Q6H PRN PRN Reason: NAUSEA Pantoprazole Sodium (Protonix) 20 mg PO DAILY [facility] Sodium Chloride (Ns Flush) 2 ml IV.FLUSH UNSCH PRN PRN Reason: FLUSH AFTER USING IV ACCESS Sodium Chloride (Ns Flush) 2 ml IV.FLUSH BID [facility] Last Admin: 07/20/18 22:14 Dose: 2 ml Sodium Chloride (Ns Flush) 2 ml IV.FLUSH PRN PRN PRN Reason: FLUSH AFTER USING IV ACCESS Allergies Allergy/AdvReac Type Severity Reaction Status Date / Time Sulfa (Sulfonamide Allergy Severe SWELLING Verified 05/16/18 17:08 Antibiotics) AND ITCHING Home Medications Medication Instructions Recorded Confirmed Type aspirin 81 mg PO DAILY 05/16/18 07/20/18 History losartan 25 mg PO DAILY 05/16/18 07/20/18 History pantoprazole 20 mg PO DAILY 05/16/18 07/20/18 History Exam Vital signs: Vital Signs 07/20/18 16:04 07/20/18 16:24 07/20/18 17:07 Temperature 98.4 F Pulse Rate 60 68 59 L Respiratory Rate 16 Blood Pressure 160/98 H 150/77 H Pulse Oximetry 97 98 96 07/20/18 19:02 07/20/18 22:00 07/21/18 00:00 Temperature 96.1 F L 97.7 F Pulse Rate 56 L 56 L 57 L Respiratory Rate 17 20 20 Blood Pressure 154/79 H 169/83 H 117/62 Pulse Oximetry 99 97 97 07/21/18 04:00 Temperature 97.6 F Pulse Rate 62 Respiratory Rate 20 Blood Pressure 133/70 Pulse Oximetry 96 Intake & Output 07/20/18 07/21/18 07/21/18 18:59 06:59 18:59 Intake Total 0 / 0 Balance 0 / 0 Weight 105.4 kg 106.4 kg Intake: Oral 0 / 0 Other: # Voids 3 Date of Last Bowel Movement 07/20/18 Weight On Admission 106.5 kg Narrative: GENERAL: Well-developed, well-nourished patient in [facility]. SKIN: Warm and dry. No rash. HEAD: Normocephalic. Atraumatic. EYES: Pupils equal and round. No scleral icterus. No injection or drainage. ENT: No nasal bleeding or discharge. Mucous membranes pink and moist. NECK: Supple. Trachea midline. CARDIOVASCULAR: Regular rate and rhythm. S1, S2 noted. No murmur appreciated. RESPIRATORY: No accessory muscle use. Clear to auscultation. Breath sounds equal bilaterally. No chest pain to palpation. GASTROINTESTINAL: Abdomen soft, non-tender, nondistended. Normoactive bowel sounds x4. MUSCULOSKELETAL: No obvious deformities. Extremities without clubbing, cyanosis , or edema. NEUROLOGICAL: Awake and alert. No obvious cranial nerve deficits. Motor grossly within normal limits. 5/5 muscle strength in bilateral upper and lower extremities. Normal speech. PSYCHIATRIC: Appropriate mood and affect; insight and judgment normal. Results - Labs CBC & Chem 7: 07/20/18 15:48 07/20/18 15:48 Labs: Laboratory Results - last 24 hr 07/20/18 07/20/18 07/20/18 15:48 15:48 20:15 CBC w Diff Auto diff final WBC 6.8 RBC 5.46 Hgb 16.3 Hct 47.4 MCV 86.9 MCH 29.9 MCHC 34.4 RDW 12.4 Plt Count 204 MPV 8.7 Neut % (Auto) 58.2 Lymph % (Auto) 31.2 [place] % (Auto) 7.2 Eos % (Auto) 2.3 Baso % (Auto) 1.1 Neut # (Auto) 3.9 Lymph # (Auto) 2.1 [place] # (Auto) 0.5 Eos # (Auto) 0.2 Baso # (Auto) 0.1 WBC Differential . Differential Comment . Sodium 139 Potassium 4.3 Chloride 106 Carbon Dioxide 25.5 Anion Gap 8 BUN 14 Creatinine 1.00 Estimated GFR 78 L Random Glucose 83 Calcium 9.0 Total Bilirubin 0.5 AST 54 H ALT 76 Alkaline Phosphatase 81 Total Creatine Kinase 189 128 CK-MB (CK-2) 1.3 Troponin I Less than 0.02 L Less than 0.02 L Total Protein 7.4 Albumin 4.0 07/20/18 22:40 CBC w Diff WBC RBC Hgb Hct MCV MCH MCHC RDW Plt Count MPV Neut % (Auto) Lymph % (Auto) [place] % (Auto) Eos % (Auto) Baso % (Auto) Neut # (Auto) Lymph # (Auto) [place] # (Auto) Eos # (Auto) Baso # (Auto) WBC Differential Differential Comment Sodium Potassium Chloride Carbon Dioxide Anion Gap BUN Creatinine Estimated GFR Random Glucose Calcium Total Bilirubin AST ALT Alkaline Phosphatase Total Creatine Kinase 119 CK-MB (CK-2) Troponin I Less than 0.02 L Total Protein Albumin - Imaging Impressions Chest X-Ray 07/20/18 15:49 CONCLUSION: No acute cardiopulmonary findings are identified. Exam is similar previous of . Caprini VTE Risk Assessment Caprini VTE Risk Assessment: No/Low Risk (score <= 1) Caprini Risk Assessment Model: Point Value = 1 Point Value = 2 Point Value = 3 Point Value = 5 Age 41-60 Minor surgery BMI > 25 kg/m2 Swollen legs Varicose veins or History of unexplained or recurrent spontaneous Oral contraceptives or hormone replacement Sepsis (< 1 month) Serious lung disease, including pneumonia (< 1 month) Abnormal pulmonary function Acute myocardial infarction Congestive heart failure (< 1 month) History of inflammatory bowel disease Medical patient at bed rest Age 61-74 Arthroscopic surgery Major open surgery (> 45 min) Laparoscopic surgery (> 45 min) Malignancy Confined to bed (> 72 hours) Immobilizing plaster cast Central venous access Age >= 75 History of VTE Family history of VTE Factor V Leiden Prothrombin [id number] Lupus anticoagulant Anticardiolipin antibodies Elevated serum homocysteine Heparin-induced thrombocytopenia Other congenital or acquired thrombophilia Stroke (< 1 month) Elective arthroplasty Hip, pelvis, or leg fracture Acute spinal cord injury (< 1 month) Prophylaxis Regimen: Total Risk Factor Score Risk Level Prophylaxis Regimen 0-1 Low Early ambulation 2 Moderate Order ONE of the following: *Sequential Compression Device (SCD) *Heparin 5000 units SQ BID 3-4 Higher Order ONE of the following medications: *Heparin 5000 units SQ TID *Enoxaparin/Lovenox 40 mg SQ daily (WT < 150 kg, CrCl > 30 mL/min) *Enoxaparin/Lovenox 30 mg SQ daily (WT < 150 kg, CrCl > 10-29 mL/min) *Enoxaparin/Lovenox 30 mg SQ BID (WT < 150 kg, CrCl > 30 mL/min) AND/OR *Sequential Compression Device (SCD) 5 or more Highest Order ONE of the following medications: *Heparin 5000 units SQ TID (Preferred with Epidurals) *Enoxaparin/Lovenox 40 mg SQ daily (WT < 150 kg, CrCl > 30 mL/min) *Enoxaparin/Lovenox 30 mg SQ daily (WT < 150 kg, CrCl > 10-29 mL/min) *Enoxaparin/Lovenox 30 mg SQ BID (WT < 150 kg, CrCl > 30 mL/min) AND *Sequential Compression Device (SCD) Assessment and Plan - Assessment (1) Chest pain Code(s): R07.9 - Chest pain, unspecified Status: Acute - Plan This is a 53-year-old male patient with: Chest pain -Patient has been admitted to the chest pain center for observation. -Serial EKGs and serial troponins have been ordered for ruling out ACS purposes. Troponins flat. -EKG reviewed showing normal sinus rhythm without any ST changes to indicate any ischemia. -Patient continued on cardiac telemetry, monitored overnight no arrhythmias noted. -CBC and BMP reviewed, remarkable. Chest x-ray reviewed, no acute cardiopulmonary disease noted. -Patient was given aspirin in the ED. Chest pain has improved. -Patient will undergo cardiac stress test to further rule out any ischemia. -Further hospitalization treatment plan will depend on cardiac stress test results. Patient stable at this time and agreeable to plan. Hypertension, chronic: Will continue home losartan. Continue to monitor blood pressure trends. Hyperlipidemia, chronic: Will continue home statin. P[place]: SCDs. Ambulation. (1) Chest pain Qualifiers: Chest pain type: unspecified Qualified Code(s): R07.9 - Chest pain, unspecified
[2018-07-21] MEDS ORDERED: Aspirin 325 MG Tablet PO SCH (09:00)
[2018-07-21] MEDS ORDERED: Pantoprazole Sodium 20 MG DR Tablet PO SCH (09:00)
[2018-07-21] MEDS ORDERED: Regadenoson Inj 0.4 MG/5 ML Syringe IV.PUSH ONE (12:29)
--- NOTE | 2018-07-21 14:47 | NM ---
EXAM DATE: 07/21/2018 1:50 PM EDT AGE/SEX: 53 years / Male INDICATIONS:Angina. Coronary artery disease Midsternal chestpain. CLINICAL DATA: This is the patient's initial encounter. Patient reports that signs and symptoms have been present for 1 day and indicates a pain score of 6/10. MEDICAL/SURGICAL HISTORY: Myocardial infarction. Parkinson's disease. Hypertension. Inguinal hernia repair. Knee,shoulder and back surgery. COMPARISON: [facility], MYOCARDIAL PERF PHARM SPECT, 12/29/2012. . DOSE: 8.1 mCi Tc 99m Myoview at rest 25.8 mCi [id number] at stress 0.4 mg Lexiscan STRESS SYMPTOMS: Short of breath, chest pain, left arm numbness and left leg. EJECTION FRACTION: 63 % TECHNIQUE: The patient underwent pharmacologic stress with infusion of prescribed dose. Continuous ECG tracing was monitored during stress. Gated SPECT imaging was performed after stress and conventi onal SPECT imaging was performed at rest. The examination was performed on a SPECT/CT scanner, both attenuation and non-corrected datasets were reviewed. FINDINGS: Distribution: The maximum perfused segment at stress is in the mid septal wall. Perfusion Study: The pattern of perfusion at stress is within normal limits. Gated Study: There are intact wall motion and wall thickening without hypokinetic or dyskinetic segm ents. The ejection fraction is calculated at 63%. Slight decreased perfusion along the anteroseptal wall. I do not believe it is pathologic. RISK CATEGORY: Low (<1% Annual Motality Rate) CONCLUSION: 1. Negative examination. Electronically signed by: Stu Fish MD 07/21/2018 2:45 PM EDT
--- NOTE | 2018-07-21 15:06 | ECG ---
Date Performed: 07/20/2018 Time Performed: 15:37:03 PTAGE: 53 years EKG: Sinus rhythm When compared to previous tracing, sinus rate is faster. NORMAL ECG PREVIOUS TRACING : 05/17/2018 12.12.03 DOCTOR: Dragan Montoya Interpretating Date/Time 07/21/2018 15:05:11
--- NOTE | 2018-07-21 15:08 | ECG ---
Date Performed: 07/20/2018 Time Performed: 19:37:58 PTAGE: 53 years EKG: SINUS BRADYCARDIA When compared to previous tracing, sinus rat is slower. BORDERLINE ECG PREVIOUS TRACING : 07/20/2018 15.37 DOCTOR: Dragan Montoya Interpretating Date/Time 07/21/2018 15:06:52
--- NOTE | 2018-07-21 15:08 | ECG ---
Date Performed: 07/20/2018 Time Performed: 22:34:43 PTAGE: 53 years EKG: SINUS BRADYCARDIA Since previous tracing, no significant change noted BORDERLINE ECG PREVIOUS TRACING : 07/20/2018 19.37 DOCTOR: Dragan Montoya Interpretating Date/Time 07/21/2018 15:07:04
--- NOTE | 2018-07-22 14:26 | TR ---
Date Performed: 07/21/2018 Time Performed: 12:44:41 DOCTOR: Roe Merino DRUG LIST: CLINICAL HISTORY: REASON FOR TEST: REASON FOR ENDING: OBSERVATION: CONCLUSION: COMMENTS: Lexiscan stress test was performed under standard four minute protocol. Radionuclide was injected one minute prior to ending the test. No electrocardiographic abormalities were present t o suggest ischemia. Nuclear imaging and interpretation are pending.
== END 2018-07-21 16:41 | disposition home or self-care (01) ==
LOC: PHEDA 15:31 → PHED 15:31 → PH3 21:42
PROVIDERS: ADMIT Internal Medicine; ATTEND Internal Medicine